=== PATIENT | male | born 1965 | race African-American/Black ===

== ENCOUNTER 2017-07-26 15:23 | Inpatient (IN) | payer OTHER, MEDICARE ==
[~2017-07-26] VITALS: Ht 175.3 cm; Wt 83.1 kg
[~2017-07-26 15:23] MED LIST: ABACAVIR300 MG PO; AMLODIPINE BESY10 MG PO; CARVEDILOL25 MG PO; LAMIVUDINE150 MG PO; LISINOPRIL10 MG PO; MINOXIDIL2.5 MG PO; SUSTIVA600 MG PO
--- OUTSIDE RECORDS SUMMARY | 2017-07-26 15:25 | XMS REPORT | Clinical Summary ---
Author Author HORACIO [facility] Hospital[facility] Address Unknown Phone Unavailable Care Team Providers Care Svp Name Role Phone PCP Unavailable Allergies Active Allergy Reactions Severity Noted Date Comments Penicillins Itching 06/01/2017 Prednisone Other (See Comments) 06/01/2017 No tolerance Sulfa (Sulfonamide Hives 06/01/2017 Antibiotics) Morpholine Analogues Anxiety Low 06/01/2017 Patient states his chest gets tight. Current Medications Not on file Active Problems Not on file Encounters Date Type Specialty Care Team Description 06/07/2017 Abstract Gabriela Herr 06/01/2017 Abstract Gabriela Herr after 07/25/2016 Social History Tobacco Use Types Packs/Day Years Used Date Never Assessed Sex Assigned at Date Recorded Not on file Last Filed Vital Signs Vital Sign Reading Time Taken Blood Pressure - - Pulse - - Temperature - - Respiratory Rate - - Oxygen Saturation - - Inhaled Oxygen - - Concentration Weight 73.9 kg (163 lb) 06/01/2017 1:42 PM CSR RETAIL Height 175.3 cm (5' 9") 06/01/2017 1:42 PM CSR [facility]AIL Body Mass Index 24.07 06/01/2017 1:42 PM CSR RETAIL Plan of Treatment Date Type Specialty Care Team Description 07/27/2017 Office Visit Transplant ESRD (end stage renal disease) on dialysis (HCC) (Primary Dx);Pre-transplant evaluation for chronic kidney disease;Hypertensive renal disease;Type 2 diabetes mellitus with chronic kidney disease on chronic dialysis, unspecified residential insulin use status (HCC) 07/27/2017 Orders Only Transplant Hepatology 07/27/2017 Evaluation Transplant 07/27/2017 Evaluation Transplant 07/27/2017 Evaluation Transplant Results Not on fileafter 07/25/2016
[2017-07-26] MEDS ORDERED: SODIUM CHLORIDE 0.9% 1000ML 1,000 ML IV STA (18:42)
[2017-07-26] MEDS ORDERED: KETOROLAC TROMETHAMINE 30 MG/ML VIAL ONE (18:56)
[2017-07-26] MEDS ORDERED: KETOROLAC TROMETHAMINE 30 MG/ML VIAL IV ONE (19:00)
[2017-07-26 19:05] LABS: BASOPHILS % 0.4 % (0.0-1.0); EOSINOPHILS # (AUTO) 0.1 (0.0-0.4); EOSINOPHILS % 1.8 % (0.0-6.0); HEMATOCRIT 31.8 % (38.2-49.6); HEMOGLOBIN 10.8 g/dL (14.0-18.0); LYMPHOCYTES # (AUTO) 1.8 (1.0-3.2); LYMPHOCYTES % 35.9 % (18.0-39.1); MEAN CORPUSCULAR HEMOGLOBIN 30.7 pg (28-32); MEAN CORPUSCULAR VOLUME 90.3 fL (81-99); MONOCYTES # (AUTO) 0.4 (0.2-0.8); NEUTROPHILS # (AUTO) 2.7 (2.1-6.9); NEUTROPHILS % 53.5 % (38.7-80.0); PLATELET COUNT 152 x10e3/uL (140-360); RED BLOOD COUNT 3.52 x10e6/uL (4.3-5.7); RED CELL DISTRIBUTION WIDTH 12.8 % (11.7-14.4)
[2017-07-26] MEDS ORDERED: SODIUM CHLORIDE FLUSH 10 ML SYR INJ PRN (19:15)
[2017-07-26 19:20] LABS: ALBUMIN 3.9 g/dL (3.5-5.0); ALBUMIN/GLOBULIN RATIO 0.7 (0.8-2.0); ANION GAP 15.2 mmol/L (8-16); CALCIUM 9.5 mg/dL (8.4-10.2); CREATININE, SERUM 9.67 mg/dL (0.72-1.25); POTASSIUM 4.2 mmol/L (3.5-5.1)
--- OUTSIDE RECORDS SUMMARY | 2017-07-26 20:24 | XMS REPORT | Clinical Summary ---
Author Author HOARCIO [facility] Address Unknown Phone Unavailable Care Team Providers Care Sheet Rock Nailer Name Role Phone PCP Unavailable Allergies Active [...] 73.9 kg (163 lb) 06/01/2017 1:42 PM DOCUMENT IMPROVEMENT SPECIALIST Height 175.3 cm (5' 9") 06/01/2017 1:42 PM DOCUMENT IMPROVEMENT SPECIALIST Body Mass Index 24.07 06/01/2017 1:42 PM DOCUMENT IMPROVEMENT SPECIALIST Plan of Treatment Date Type Specialty Care Team Description 07/27/2017 Office Visit Transplant ESRD (end stage renal disease) on dialysis (HCC) (Primary Dx);Pre-transplant evaluation for chronic kidney disease;Hypertensive renal disease;Type 2 diabetes mellitus with chronic kidney disease on chronic dialysis, unspecified longterm insulin use status (HCC) 07/27/2017 Orders Only Transplant Hepatology 07/27/2017 Evaluation Transplant 07/27/2017 Evaluation Transplant 07/27/2017 Evaluation Transplant Results Not on fileafter 07/25/2016
[2017-07-27] MEDS: ONDANSETRON HCL INJ 2 MG/ML VIAL IV PRN ×4 (00:25→19:20)
[2017-07-27] MEDS: MEROPENEM 500 MG VIAL IV SCH ×2 (00:25→20:00)
[2017-07-27] MEDS: HYDROMORPHONE 2MG/ML INJ IV PRN ×4 (00:25→19:20)
[2017-07-27] MEDS ORDERED: LEXIVA700 MG PO (01:04)
[2017-07-27] MEDS ORDERED: SUCRALFATE1 GM PO (01:04)
[2017-07-27] MEDS ORDERED: CALCIUM ACETAT667 MG PO (01:04)
[2017-07-27] MEDS ORDERED: tivicay PO (01:04)
[2017-07-27 04:46] LABS: BASOPHILS % 0.6 % (0.0-1.0); EOSINOPHILS # (AUTO) 0.1 (0.0-0.4); EOSINOPHILS % 2.2 % (0.0-6.0); HEMATOCRIT 27.5 % (38.2-49.6); HEMOGLOBIN 9.3 g/dL (14.0-18.0); LYMPHOCYTES # (AUTO) 2.3 (1.0-3.2); LYMPHOCYTES % 46.8 % (18.0-39.1); MEAN CORPUSCULAR HEMOGLOBIN 30.3 pg (28-32); MEAN CORPUSCULAR HGB CONC 33.8 g/dL (31-35); MEAN CORPUSCULAR VOLUME 89.6 fL (81-99); MONOCYTES # (AUTO) 0.4 (0.2-0.8); MONOCYTES % 8.8 % (4.4-11.3); NEUTROPHILS # (AUTO) 2.1 (2.1-6.9); NEUTROPHILS % 41.4 % (38.7-80.0); PLATELET COUNT 131 x10e3/uL (140-360); RED BLOOD COUNT 3.07 x10e6/uL (4.3-5.7); RED CELL DISTRIBUTION WIDTH 12.8 % (11.7-14.4)
[2017-07-27 05:08] LABS: ALBUMIN 3.3 g/dL (3.5-5.0); ALBUMIN/GLOBULIN RATIO 0.8 (0.8-2.0); ANION GAP 16.1 mmol/L (8-16); CALCIUM 8.3 mg/dL (8.4-10.2); CREATININE, SERUM 10.36 mg/dL (0.72-1.25); POTASSIUM 4.1 mmol/L (3.5-5.1)
--- NOTE | 2017-07-27 09:44 | Diagnostic Imaging Report ---
PROCEDURE:GALLBLADDER ULTRASOUND COMPARISON:None. INDICATIONS:RUQ Pain FINDINGS: Liver: 17.4 cm. Normal hepatic parenchymal echogenicity. No focal mass. Main portal vein: 1.2 cm. Hepatopedal flow. Gallbladder: No echogenic calculi, gallbladder wall thickening, or pericholecystic fluid. Common Bile Duct: 4.0 mm. No echogenic filling defect. Sonographic Nur's sign: Negative. Right kidney: 8.6 cm. Focal well-circumscribed anechoic 2.6 x 2.6 x 2.7 cm cyst is present in the interpolar region. No solid or cystic mass, echogenic calculi, or hydronephrosis. Increased parenchymal echogenicity. Pancreas: The pancreas was insufficiently visualized secondary to overlying bowel gas. Inferior vena cava: Normal. Aorta: Normal. Ascites: None. CONCLUSION: 1. No acute sonographic abnormality. 2. Increased renal cortical echogenicity may represent medical renal disease. Dictated by: Hugo Fraser M.D. on 07/27/2017 at 9:54 Electronically approved by: Hugo Fraser M.D. on 07/27/2017 at 9:54
[2017-07-27] MEDS ORDERED: GUAIFENESIN/CODEINE 10 ML CUP PO PRN (10:30)
[2017-07-27] MEDS ORDERED: HYDRALAZINE HCL 20 MG/ML VIAL IV PRN (10:30)
[2017-07-27] MEDS: SUCRALFATE 1 GM TAB PO SCH ×3 (11:59→21:07)
--- NOTE | 2017-07-27 11:59 | History and Physical ---
CHIEF COMPLAINT: Right upper quadrant abdominal pain. HPI: This is a 52-year-old male with known history of HIV, end-stage renal disease on HD, uncontrolled hypertension who also has secondary hyperparathyroidism who comes into the ED with complaints of right upper quadrant abdominal pain. He was recently admitted to [facility]. According to the patient, he has had several imaging studies and was told that he just had gas and was discharged home. Yesterday, he reports to his ID doctor, Dr. Waddell, due to worsening abdominal distention and pain and came into [facility] for further evaluation. Patient reports no nausea, no vomiting. He reports right upper quadrant abdominal pain. He denies chest pain or palpitations. Patient seen and evaluated at bedside on the medical floor in the ER, currently doing well with no other complaints. His blood pressure is elevated and his home medications have been restarted. REVIEW OF SYSTEMS: Pertinent positives: Right upper quadrant abdominal pain, decreased oral intake. Pertinent negatives: Denies any chest pain, palpitations, nausea, vomiting, diarrhea, dysuria, hematuria, frequency, urgency, lightheadedness, dizziness, headache, shortness of breath, or any other complaints. The rest of the 14-point review of systems have been reviewed with the patient and are negative. ALLERGIES: PENICILLIN, SULFA, MORPHINE, AND PREDNISONE. HOME MEDICATIONS: He takes; 1. Abacavir 300 mg p.o. b.i.d. 2. Norvasc 10 mg daily. 3. Calcium acetate 667 mg p.o. t.i.d. with meals. 4. Coreg 25 mg p.o. b.i.d. 5. Sustiva 600 mg daily. 6. Lamivudine 150 mg half a tab daily. 7. Lexiva 700 mg p.o. b.i.d. 8. Minoxidil 10 mg p.o. b.i.d. 9. Sucralfate 1 gram p.o. q.i.d. PAST MEDICAL HISTORY: HIV, ESRD on HD, and hypertension uncontrolled. PAST SURGICAL HISTORY: Has an AV fistula on the left upper extremity. FAMILY HISTORY: Hypertension and diabetes. SOCIAL HISTORY: No drugs, no alcohol. Does not smoke. Good social support. VITAL SIGNS: Temperature is 97.9, pulse 92, respiratory rate is 16, his current blood pressure is 200/106, pulse ox is 96% on room air. LABORATORY DATA: His lab findings shows a white count of 5, hemoglobin 9.3, hematocrit is 28, platelets of 331. Chemistries: Sodium is 136, potassium 4.1, chloride 101, bicarb 23, anion gap of 16, BUN is 46, creatinine is 1.0, his glucose is 85, calcium 8.3. LFTs are normal. Albumin is 3.3. MICROBIOLOGY: None. IMAGING STUDIES: He had a right upper quadrant ultrasound of the gallbladder, showed no acute sonographic abnormality. PHYSICAL EXAMINATION GENERAL: Not in acute distress, alert and oriented times 3, cooperative on exam. HEENT: Head normocephalic, atraumatic. Eyes: Pupils are equal, round, and reactive to light bilaterally. Extraocular movements are intact bilaterally. NECK: Supple. Good range of motion. Throat: No evidence of any erythema or exudates in the posterior pharynx. Has poor dentition. PULMONARY: Clear to auscultation bilaterally. No wheezing, no rales, no rhonchi. No crackles appreciated. CARDIOVASCULAR: Positive S1, S2. No murmurs, rubs or gallops appreciated. ABDOMEN: Soft. Tender to palpation in right upper quadrant. It is distended. No rebound, no guarding. MUSCULOSKELETAL: Strength is 5/5 throughout. No evidence of any musculoskeletal deficit on examination. No weakness appreciated. NEUROLOGIC: Cranial nerves II through XII are grossly intact. No evidence of any neurological deficit on exam. SKIN: Intact. Warm to touch. Good capillary refill. PSYCHIATRIC: Normal affect and mood. EXTREMITIES: No edema. Good range of motion throughout. ASSESSMENT AND PLAN 1. Right upper quadrant abdominal pain with abdominal distention - Right upper quadrant ultrasound negative for any cholecystitis, HIDA scan ordered, general surgery consulted. If not resolved or no positive result on HIDA scan, we will get CT abdomen and pelvis with IV contrast and possible GI consultation. 2. End-stage renal disease, on hemodialysis Wednesday, Wednesday, and Wednesday - Schedule hemodialysis for tomorrow. 3. Human immunodeficiency virus - Infectious disease consulted, continue same home medications. 4. Hypertension urgency - Resume all home medications, adjust accordingly, p.r.n. hydralazine. 5. Prophylaxis - Lovenox. 6. Fluid, electrolyte, nutrition - N.p.o. for now. Renal diet after procedure is done. 7. Disposition - Inpatient, ID and general surgery consulted otherwise. Job#: [id number] VAS
[2017-07-27] MEDS ORDERED: SINCALIDE 3 MCG/VIAL INJ ONE (13:33)
--- NOTE | 2017-07-27 16:54 | Diagnostic Imaging Report ---
Hepatobiliary Scan with Gallbladder Ejection Fraction Clinical information: RUQ abdominal pain x 1 week Technique: Following intravenous administration of 5.4 millicuries of Tc-99m mebrofenin, dynamic images of the abdomen in the anterior projection were obtained through 36 minutes. Sincalide (CCK analog) 1.8 micrograms was administered intravenously over 30 minutes with additional imaging for determination of gallbladder ejection fraction. Discussion: Perfusion of the liver is normal. Extraction of tracer by the liver parenchyma is normal. Tracer appears promptly within the biliary tract. The gallbladder begins to fill at 10 minutes post injection of tracer and fills adequately. Tracer is seen in the small bowel during the sincalide infusion. There is no contractile response by the gallbladder to the pharmacologic dose of sincalide. No emptying of the gallbladder occurs during the 30 minute infusion. Impression: 1. Filling of the gallbladder excludes acute cystic duct obstruction/acute cholecystitis. 2. The gallbladder ejection fraction is undefined as there is no emptying of the gallbladder during the infusion of sincalide. This absence of a contractile response to sincalide supports the clinical diagnosis of chronic cholecystitis/gallbladder dyskinesia. Signed by: Dr. Rosey Shaw M.D. on 07/27/2017 4:51 PM
[2017-07-27] MEDS: MINOXIDIL 2.5 MG TAB PO SCH (16:57)
[2017-07-27] MEDS: CARVEDILOL 12.5 MG TAB PO SCH (16:57)
[2017-07-27] MEDS: FOSAMPRENAVIR CALCIUM PO SCH (17:00)
[2017-07-27] MEDS: TIVICAY 50 MG PO SCH (17:00)
[2017-07-27] MEDS: ABACAVIR SULFATE 300 MG PO SCH (17:00)
[2017-07-27 17:50] VITALS: BP 170/89
[2017-07-27 20:00] VITALS: BP 149/81
[2017-07-27] MEDS: ZOLPIDEM TARTRATE 5 MG TAB PO PRN (20:45)
[2017-07-27 23:48] VITALS: BP 149/81
--- NOTE | 2017-07-27 23:59 | Consultation ---
DATE OF CONSULTATION: REASON FOR CONSULTATION: HIV, abdominal pain, concern about cholecystitis. HISTORY OF PRESENT ILLNESS: This is a 52-year-old gentleman who has a history of HIV and AIDS, end-stage renal disease on hemodialysis, hypertension, multiple GI issues before, history of hyperparathyroidism. He came to my office complaining of right abdominal pain. The patient is telling me for the last few days having abdominal pain with abdominal distention. He has been to [facility] where he had extensive workup, but he was discharged. He came to my office telling me that he is not feeling any better. When I examined him, there was right upper quadrant pain and distention and tenderness. The patient is known to have a history of HIV and his viral load has been going up and CD4 has been going down, so I was concerned about him. He was sent to the emergency room where he was being admitted and evaluated for concern if he is having cholecystitis. The patient is currently laying in bed comfortably; but he does have right upper quadrant pain, some nausea, but there is no vomiting. He feels his abdomen is bloated. PAST MEDICAL HISTORY: Significant for hypertension, HIV, end-stage renal disease, several GI issues. SURGICAL HISTORY: IV access for dialysis. ALLERGIES: PENICILLIN AND SULFA DRUGS. SOCIAL HISTORY: He denies smoking, drug abuse, alcohol abuse. FAMILY HISTORY: Hypertension. REVIEW OF SYSTEMS HEENT: There is no headache, visual change, hearing change. GI: Some nausea. There is abdominal discomfort. He feels bloated. : There is no urgency, no frequency. SKIN: There is no rash. JOINTS: There is no erythema or edema. CARDIAC: He denies any chest pain or arrhythmia. PULMONARY: He denies any shortness of breath or cough. All other systems within normal limits. MEDICATIONS: He is on 1. Abacavir 300 mg p.o. b.i.d. 2. Norvasc 10 mg p.o. daily. 3. Calcium acetate 667 p.o. t.i.d. 4. Coreg 25 mg p.o. b.i.d. 5. Sustiva 600 mg daily. 6. Lamivudine 150 mg p.o. daily. 7. Lexiva 700 p.o. b.i.d. 8. Minoxidil 10 mg p.o. b.i.d. 9. Sucralfate 1 g p.o. t.i.d. I am not so sure how compliant he is with his antiretroviral medication because the viral load is elevated and going up. PHYSICAL EXAMINATION GENERAL: He is currently alert, oriented, does not seem to be in acute distress. VITALS: Stable. Afebrile. HEENT: He is not icteric. Normocephalic. NECK: Supple. No JVD. LYMPHATIC: No thyromegaly. CHEST: Clear bilaterally. COR: S1, S2. No murmur. ABDOMEN: Soft. Bowel sounds present. He does have right upper quadrant tenderness. EXTREMITIES: No edema. SKIN: No rash. His laboratory data reviewed. His chart reviewed. IMPRESSION 1. Right upper quadrant pain, concern about cholecystitis. Ultrasound was noted. It has been negative. Will obtain hydroxy iminodiacetic acid scan. Will consult with gastroenterology and general surgery. 2. End-stage renal disease, on hemodialysis. 3. Human immunodeficiency virus. Will continue with his antiretroviral medications. 4. Hypertension. Thank you for asking me to see this patient. Discussed with the patient, discussed with attending. Job#: [id number]
[2017-07-28] VITALS (7 sets, daily range): BP systolic 79–174; BP diastolic 54–104
--- NOTE | 2017-07-28 00:11 | Consultation ---
DATE OF CONSULTATION: July 27, 2017 CHIEF COMPLAINT: Abdominal pain. HISTORY OF PRESENT ILLNESS: Patient is a 52-year-old male with history of abdominal distention, bloating postprandially for approximately 2 months. In the last 2 weeks, he has experienced increasing right upper quadrant pain with fatty food intolerance. The patient denied nausea, vomiting, diarrhea, fever or chills. PAST MEDICAL HISTORY: Significant for end-stage renal disease, on dialysis; HIV positive; and uncontrolled hypertension. SURGICAL HISTORY: Positive for AV fistula creation in the left arm. ALLERGIES: THE PATIENT HAS ALLERGIC REACTION TO SULFA, PENICILLIN, MORPHINE, AND PREDNISONE. SOCIAL HABITS: The patient does not smoke and drinks only socially. REVIEW OF SYSTEMS: He has no chest pain or shortness of breath. PHYSICAL EXAMINATION VITAL SIGNS: Stable, afebrile. GENERAL: He is awake, alert, in no apparent distress. HEENT: Sclerae nonicteric. NECK: Supple. LUNGS: Clear. HEART: Regular rate and rhythm. No murmurs. ABDOMEN: Mildly distended with some guarding, tenderness in the right upper quadrant without rebound. EXTREMITIES: Without cyanosis or edema. LABS: The patient's white cell count is 5, hemoglobin of 9, platelet count of 131,000. Liver function tests are within normal limits with lipase 54. HIDA scan showed no emptying of the gallbladder suggesting biliary dyskinesia. Ultrasound showed no gallstones. ASSESSMENT: Chronic cholecystitis from biliary dyskinesia. PLAN: Recommended laparoscopic cholecystectomy under anesthesia. Attendant risks discussed with patient in detail. Job#: [id number]
[2017-07-28 06:20] LABS: BASOPHILS % 0.4 % (0.0-1.0); EOSINOPHILS # (AUTO) 0.1 (0.0-0.4); EOSINOPHILS % 1.7 % (0.0-6.0); HEMATOCRIT 27.9 % (38.2-49.6); HEMOGLOBIN 9.4 g/dL (14.0-18.0); LYMPHOCYTES # (AUTO) 2.1 (1.0-3.2); LYMPHOCYTES % 45.2 % (18.0-39.1); MEAN CORPUSCULAR HEMOGLOBIN 30.3 pg (28-32); MEAN CORPUSCULAR HGB CONC 33.7 g/dL (31-35); MONOCYTES # (AUTO) 0.4 (0.2-0.8); MONOCYTES % 8.5 % (4.4-11.3); NEUTROPHILS # (AUTO) 2.1 (2.1-6.9); NEUTROPHILS % 43.8 % (38.7-80.0); PLATELET COUNT 132 x10e3/uL (140-360); RED CELL DISTRIBUTION WIDTH 13.2 % (11.7-14.4)
[2017-07-28 06:33] LABS: ANION GAP 19.9 mmol/L (8-16); CREATININE, SERUM 14.36 mg/dL (0.72-1.25); POTASSIUM 4.9 mmol/L (3.5-5.1)
[2017-07-28] MEDS: HYDROMORPHONE 2MG/ML INJ IV PRN ×4 (08:20→22:29)
[2017-07-28] MEDS: SUCRALFATE 1 GM TAB PO SCH ×4 (08:24→20:59)
[2017-07-28] MEDS: FOSAMPRENAVIR CALCIUM PO SCH ×2 (09:00→16:22)
[2017-07-28] MEDS: MINOXIDIL 2.5 MG TAB PO SCH ×2 (09:00→16:23)
[2017-07-28] MEDS: TIVICAY 50 MG PO SCH ×2 (09:00→16:22)
[2017-07-28] MEDS ORDERED: LISINOPRIL 10 MG TAB PO SCH (09:00)
[2017-07-28] MEDS: ABACAVIR SULFATE 300 MG PO SCH ×2 (09:00→16:22)
[2017-07-28] MEDS ORDERED: SODIUM CHLORIDE 0.9% 1000ML 2,000 ML ONE (09:05)
[2017-07-28] MEDS: LISINOPRIL 20 MG TAB PO SCH ×3 (10:30→16:30)
[2017-07-28] MEDS: CARVEDILOL 12.5 MG TAB PO SCH ×2 (12:19→16:22)
[2017-07-28] MEDS: AMLODIPINE BESYLATE 10 MG TAB PO SCH (12:20)
[2017-07-28] MEDS ORDERED: DIPHENHYDRAMINE HCL INJ 50 MG/ML VIAL IV PRN (14:30)
[2017-07-28] MEDS: VANCOMYCIN 250MG/5ML ORAL SOLN PO SCH ×2 (15:33→20:59)
[2017-07-28] MEDS: MEROPENEM 500 MG VIAL IV SCH (20:30)
[2017-07-28] MEDS: ZOLPIDEM TARTRATE 5 MG TAB PO PRN (23:40)
[2017-07-29] VITALS: BP 96/46
[2017-07-29] MEDS: VANCOMYCIN 250MG/5ML ORAL SOLN PO SCH ×3 (05:05→21:18)
[2017-07-29] MEDS: HYDROMORPHONE 2MG/ML INJ IV PRN ×4 (06:40→22:10)
[2017-07-29] MEDS: SUCRALFATE 1 GM TAB PO SCH ×4 (07:30→21:18)
[2017-07-29] MEDS: FOSAMPRENAVIR CALCIUM PO SCH ×2 (07:43→16:22)
[2017-07-29] MEDS: TIVICAY 50 MG PO SCH ×2 (07:43→16:22)
[2017-07-29] MEDS: ABACAVIR SULFATE 300 MG PO SCH ×2 (07:43→16:22)
[2017-07-29] MEDS: AMLODIPINE BESYLATE 10 MG TAB PO SCH (08:03)
[2017-07-29] MEDS: CARVEDILOL 12.5 MG TAB PO SCH ×2 (08:03→18:46)
[2017-07-29] MEDS: MINOXIDIL 2.5 MG TAB PO SCH ×2 (08:03→18:47)
[2017-07-29] MEDS: LISINOPRIL 20 MG TAB PO SCH (08:04)
[2017-07-29 08:29] VITALS: BP 131/69
[2017-07-29 10:13] VITALS: BP 131/69
[2017-07-29 13:16] VITALS: BP 118/59
[2017-07-29 14:13] LABS: ANION GAP 15.9 mmol/L (8-16); CALCIUM 8.9 mg/dL (8.4-10.2); CREATININE, SERUM 12.02 mg/dL (0.72-1.25); POTASSIUM 4.9 mmol/L (3.5-5.1)
[2017-07-29] MEDS ORDERED: MIDAZOLAM HCL 2 MG/2 ML VIAL ONE (14:23)
[2017-07-29] MEDS ORDERED: FENTANYL CITRATE/PF 100MCG/2 ML INJ ONE (14:24)
[2017-07-29] MEDS ORDERED: SODIUM CHLORIDE 0.9% 500ML 500 ML ONE (14:55)
[2017-07-29] MEDS ORDERED: BUPIVACAINE 0.25% 30ML SDV INJ ONE (15:17)
[2017-07-29] MEDS ORDERED: PROPOFOL IV EMULSION 10 MG/ML 20 ML VIAL ONE (17:04)
[2017-07-29] MEDS ORDERED: ROCURONIUM BROMIDE 10 MG/ML 5ML VIAL ONE (17:04)
[2017-07-29] MEDS ORDERED: LIDOCAINE HCL 2% LOCAL INJ 5 ML SDV VIAL INJ ONE (17:04)
[2017-07-29] MEDS ORDERED: DESFLURANE 240 ML BTL INH ONE (17:04)
[2017-07-29] MEDS ORDERED: ONDANSETRON HCL INJ 2 MG/ML VIAL ONE (17:04)
--- NOTE | 2017-07-29 17:34 | Operative Report ---
DATE OF PROCEDURE: July 29, 2017 PREOPERATIVE DIAGNOSIS: Chronic cholecystitis. POSTOPERATIVE DIAGNOSIS: Chronic cholecystitis. OPERATIVE PROCEDURE: Laparoscopic cholecystectomy. PROJECTS MANAGER: None. ANESTHESIA: General endotracheal Dr. Urbano. INDICATIONS: The patient is a 52-year-old male with history of epigastric pain and bloating and HIDA scan showed nonfunctional gallbladder with no ejection fraction. Patient consented for laparoscopic cholecystectomy with attendant risks discussed. PROCEDURE FINDINGS: Chronic acalculous cholecystitis. DESCRIPTION OF PROCEDURE: Patient brought to the OR intubated. Abdomen prepped with alcohol and draped in sterile fashion. Infraumbilical incision is made and a 10 mm port inserted intraperitoneally and insufflation begun. Under direct vision other port sites placed in the mid epigastric right upper quadrant. Gallbladder fundus retracted cephalad direction. Neck of the gallbladder retracted laterally with blunt and sharp dissection. Cystic artery and cystic duct isolated and the junction of the common bile duct is seen before triple clipping the cystic artery and cystic duct and divided them between clips. Gallbladder then detached from the liver with cautery and taken out through the umbilical incision using an Endo pouch. The operative field was then irrigated with saline solution. Hemostasis achieved in gallbladder fossa with cautery. All ports removed under direct vision. Fascia closed interrupted 0 Vicryl. Skin closed with subcuticular stitch. Patient was extubated and transported to the recovery room in guarded condition. Estimated blood loss 10 mL Job#: [id number]
[2017-07-29 17:44] VITALS: BP 126/72
[2017-07-29 20:00] VITALS: BP 130/67
[2017-07-29] MEDS: MEROPENEM 500 MG VIAL IV SCH (21:18)
[2017-07-29] MEDS: ZOLPIDEM TARTRATE 5 MG TAB PO PRN (21:18)
[2017-07-29] MEDS: ONDANSETRON HCL INJ 2 MG/ML VIAL IV PRN (22:10)
[2017-07-30] VITALS (7 sets, daily range): BP systolic 123–151; BP diastolic 56–87
[2017-07-30] MEDS: HYDROMORPHONE 2MG/ML INJ IV PRN ×5 (02:00→23:28)
[2017-07-30] MEDS: VANCOMYCIN 250MG/5ML ORAL SOLN PO SCH ×3 (05:40→21:27)
[2017-07-30] MEDS: SUCRALFATE 1 GM TAB PO SCH ×4 (08:42→20:18)
[2017-07-30] MEDS: CARVEDILOL 12.5 MG TAB PO SCH ×2 (08:42→17:00)
[2017-07-30] MEDS: MINOXIDIL 2.5 MG TAB PO SCH ×2 (08:42→17:00)
[2017-07-30] MEDS: AMLODIPINE BESYLATE 10 MG TAB PO SCH (08:43)
[2017-07-30] MEDS: LISINOPRIL 20 MG TAB PO SCH (08:43)
[2017-07-30] MEDS: FOSAMPRENAVIR CALCIUM PO SCH ×2 (09:00→15:46)
[2017-07-30] MEDS: ABACAVIR SULFATE 300 MG PO SCH ×2 (09:00→15:46)
[2017-07-30] MEDS: TIVICAY 50 MG PO SCH ×2 (09:00→15:46)
[2017-07-30] MEDS: ALBUTEROL/IPRATROPIUM 3 ML NEB NEB PRN (09:06)
[2017-07-30] MEDS ORDERED: SODIUM CHLORIDE 0.9% 1000ML 2,000 ML ONE (12:58)
[2017-07-30] MEDS: MEROPENEM 500 MG VIAL IV SCH (19:54)
[2017-07-30] MEDS: ZOLPIDEM TARTRATE 5 MG TAB PO PRN (20:18)
[2017-07-31] VITALS: BP 124/60
[2017-07-31 04:00] VITALS: BP 138/77
[2017-07-31] MEDS: HYDROMORPHONE 2MG/ML INJ IV PRN ×3 (04:15→19:41)
[2017-07-31] MEDS: VANCOMYCIN 250MG/5ML ORAL SOLN PO SCH ×3 (05:31→21:31)
[2017-07-31] MEDS: SUCRALFATE 1 GM TAB PO SCH ×4 (07:39→20:30)
[2017-07-31 08:09] VITALS: BP 148/76
[2017-07-31] MEDS: FOSAMPRENAVIR CALCIUM PO SCH ×2 (09:00→16:08)
[2017-07-31] MEDS: ABACAVIR SULFATE 300 MG PO SCH ×2 (09:00→16:08)
[2017-07-31] MEDS: TIVICAY 50 MG PO SCH ×2 (09:00→16:08)
[2017-07-31] MEDS: AMLODIPINE BESYLATE 10 MG TAB PO SCH (09:16)
[2017-07-31] MEDS: CARVEDILOL 12.5 MG TAB PO SCH ×2 (09:17→16:27)
[2017-07-31] MEDS: LISINOPRIL 20 MG TAB PO SCH (09:17)
[2017-07-31] MEDS: MINOXIDIL 2.5 MG TAB PO SCH ×2 (09:17→16:27)
[2017-07-31 11:44] LABS: BASOPHILS % 0.5 % (0.0-1.0); EOSINOPHILS # (AUTO) 0.1 (0.0-0.4); HEMATOCRIT 28.3 % (38.2-49.6); HEMOGLOBIN 9.6 g/dL (14.0-18.0); LYMPHOCYTES % 36.4 % (18.0-39.1); MEAN CORPUSCULAR HEMOGLOBIN 30.9 pg (28-32); MEAN CORPUSCULAR HGB CONC 33.9 g/dL (31-35); MONOCYTES # (AUTO) 0.5 (0.2-0.8); MONOCYTES % 8.8 % (4.4-11.3); NEUTROPHILS # (AUTO) 2.9 (2.1-6.9); NEUTROPHILS % 52.1 % (38.7-80.0); PLATELET COUNT 145 x10e3/uL (140-360); RED BLOOD COUNT 3.11 x10e6/uL (4.3-5.7); RED CELL DISTRIBUTION WIDTH 13.4 % (11.7-14.4)
[2017-07-31 12:05] VITALS: BP 165/77
[2017-07-31] MEDS: ALBUTEROL/IPRATROPIUM 3 ML NEB NEB PRN (14:49)
[2017-07-31 17:37] VITALS: BP 154/88
[2017-07-31 20:00] VITALS: BP 151/77
[2017-07-31] MEDS: ZOLPIDEM TARTRATE 5 MG TAB PO PRN (21:31)
[2017-08-01] VITALS: BP_SYST 137; BP_SYST 147; BP_DIAS 73; BP_DIAS 74
[2017-08-01] MEDS: HYDROMORPHONE 2MG/ML INJ IV PRN ×2 (03:24→08:43)
[2017-08-01 04:00] VITALS: BP 139/67
[2017-08-01] MEDS: VANCOMYCIN 250MG/5ML ORAL SOLN PO SCH (05:30)
[2017-08-01 07:47] VITALS: BP 141/67
[2017-08-01 08:18] VITALS: BP 141/67
[2017-08-01] MEDS: SUCRALFATE 1 GM TAB PO SCH (08:29)
[2017-08-01] MEDS: FOSAMPRENAVIR CALCIUM PO SCH (08:29)
[2017-08-01] MEDS: CARVEDILOL 12.5 MG TAB PO SCH (08:29)
[2017-08-01] MEDS: AMLODIPINE BESYLATE 10 MG TAB PO SCH (08:29)
[2017-08-01] MEDS: TIVICAY 50 MG PO SCH (08:29)
[2017-08-01] MEDS: ABACAVIR SULFATE 300 MG PO SCH (08:29)
[2017-08-01] MEDS: MINOXIDIL 2.5 MG TAB PO SCH (08:29)
[2017-08-01] MEDS: LISINOPRIL 20 MG TAB PO SCH (08:30)
[2017-08-01] MEDS ORDERED: FLUCONAZOLE 100 MG TAB PO SCH (09:00)
[2017-08-01] MEDS ORDERED: FLAGYL250 MG PO (10:19)
[2017-08-01] MEDS ORDERED: TYLENOL WITH C1 EACH PO (10:19)
--- NOTE | 2017-08-01 10:20 | Discharge Summary ---
FINAL DISCHARGE DIAGNOSES 1. Acute cholecystitis, status post laparoscopic cholecystectomy. 2. Clostridium difficile colitis. 3. Human immunodeficiency virus. 4. Hypertension. VITAL SIGNS: Temperature is 97.5, pulse 90, respiratory rate 19. Blood pressure was 141/67. He is on room air. LAB FINDINGS: White count is 5.5, hemoglobin 9.6, hematocrit 28, platelets 145. Chemistries: Sodium 136, potassium 4.9, chloride 100, bicarb 25, anion gap 15, BUN 40, and creatinine 12. His glucose is 86. Calcium 8.9. LFTs were normal. MICROBIOLOGY: None. IMAGING STUDIES: HIDA scan showed the gallbladder ejection fraction is undefined. There is no emptying of the gallbladder during the infusion. There was a gallbladder ultrasound performed that showed concerns of no acute sonographic abnormality. CONSULTANTS: Infectious disease and general surgery. HOSPITAL COURSE: This is a 52-year-old male with known history of HIV, hypertension, end-stage renal disease on HD. He comes in to the ED with complaints of right upper quadrant abdominal pain. Patient was admitted, and further imaging was found to have acute cholecystitis. General surgery was consulted, which the patient had a laparoscopic cholecystectomy performed. Patient also was tolerating diet well, back to regular diet with no other complaints. ID was consulted for his underlying HIV as well as his C. diff colitis. Patient was on antiretroviral medications and also was on oral vancomycin. Patient will be discharged on oral Flagyl 500 mg t.i.d. for 2 weeks. Patient will continue with the same antiretroviral medications with no changes. On discharge, his vital signs were stable. Labs remained stable. The patient was seen, evaluated and examined thoroughly on the day of discharge with no other complaints. Patient also had hemodialysis while he was in the hospital based on his normal schedule. Patient is to follow up with his primary care physician in one week. Patient verbalized an understanding and agrees with plan to care to follow up accordingly with the appropriate consultants as described above. MEDICATIONS: See med reconciliation form includin. Tylenol with Codeine 1 tab p.o. every 6 hours as needed for pain, 20 tablets were given. 2. Flagyl 500 mg 1 tab p.o. t.i.d. for 2 weeks. DISPOSITION: Home. CONDITION: Stable. DIET: Renal. FOLLOWUP: With primary care physician in one week, general surgery in 7 to 10 days, infectious disease doctor in 1 to 2 weeks. Patient was advised not to lift up any objects greater than 10 pounds until he sees a general surgeon for further evaluation postsurgically and post hospital. In the event of any worsening symptoms, patient advised to come back to the ED for further evaluation. Discharge summary took greater than 35 minutes. SWEETIE LUCERO MD Job#: [id number]
[2017-08-01 11:20] VITALS: BP 161/79
== END 2017-08-01 11:22 | disposition home or self-care (01) | DRG 417 ==
LOC: ER 15:23 → ERHOLD 20:21 → MED/SURG2 07-27 16:27
PROVIDERS: ADMIT Internal Medicine; ATTEND Internal Medicine
PROC: 5A1D70Z Performance of Urinary Filtration, Intermittent, Less than 6 Hours Per Day (ICD-10-PCS; 2017-07-28)
PROC: 0FT44ZZ Resection of Gallbladder, Percutaneous Endoscopic Approach (ICD-10-PCS; principal; 2017-07-29 14:00)
DX: K80.12 Calculus of gallbladder with acute and chronic cholecystitis without obstruction (principal); N18.6 End stage renal disease; B20 Human immunodeficiency virus [HIV] disease; I12.0 Hypertensive chronic kidney disease with stage 5 chronic kidney disease or end stage renal disease; A04.72 Enterocolitis due to Clostridium difficile, not specified as recurrent; N25.81 Secondary hyperparathyroidism of renal origin; Z99.2 Dependence on renal dialysis; Z88.5 Allergy status to narcotic agent; Z88.0 Allergy status to penicillin; Z88.2 Allergy status to sulfonamides; Z88.8 Allergy status to other drugs, medicaments and biological substances; K82.8 Other specified diseases of gallbladder; E21.3 Hyperparathyroidism, unspecified
CPT/HCPCS: 36415; 76705; 78227; 80048; 80053; 82150; 83690; 85025; 87340; 87493; 88304; 90962; 94640; 99284; A9537; J0360; J1200; J1885; J2001; J2185; J2250; J2405; J2805; J7030; J7040

== ENCOUNTER 2017-11-07 06:02 | Emergency (ER) | payer MEDICARE, OTHER ==
[~2017-11-07] VITALS: Ht 175.3 cm; Wt 80.7 kg
[~2017-11-07 06:02] MED LIST changes: +CALCIUM ACETAT667 MG PO; +FLAGYL250 MG PO; +LEXIVA700 MG PO; +SUCRALFATE1 GM PO; +TYLENOL WITH C1 EACH PO; +tivicay PO
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
--- OUTSIDE RECORDS SUMMARY | 2017-11-07 06:05 | XMS REPORT | Clinical Summary ---
Author Author [facility] Center[facility]Former[facility] Address Unknown Phone Unavailable Care Team Providers Care Software Engineering Associate Manager Name Role Phone PCP Unavailable Allergies Active Allergy Reactions Severity Noted Date Comments Penicillins Itching 06/01/2017 Prednisone Other (See Comments) 06/01/2017 No tolerance Sulfa (Sulfonamide Hives 06/01/2017 Antibiotics) Morpholine Analogues Anxiety Low 06/01/2017 Patient states his chest gets tight. Current Medications Prescription Sig. Disp. Refills Start End Date Status Date lisinopril Take 40 mg by mouth daily Active (PRINIVIL,ZESTRIL) 40 MG 2 tabs daily. tablet calcium acetate (PHOSLO) Take 1,334 mg by mouth 3 Active 667 mg capsule (three) times daily with meals. rOPINIRole (REQUIP) 0.5 Take 0.5 mg by mouth 3 Active MG tablet (three) times daily. amLODIPine (NORVASC) 10 Take 10 mg by mouth Active MG tablet daily. abacavir (ZIAGEN) 300 mg Take 300 mg by mouth 2 Active tablet (two) times daily. Dolutegravir (TIVICAY) 50 Take 50 mg by mouth Active mg Tab daily. fosamprenavir (LEXIVA) Take 700 mg by mouth 2 Active 700 mg tablet (two) times daily. Active Problems Patient Care Coordination Note DR. 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 (HCC) 07/27/2017 Telephone Transplant Elinor eHrnandez Kidney Transplant Pre-evaluation 06/07/2017 Abstract Transplant Gabriela Quintero 06/01/2017 Abstract Gabriela Herr after 11/06/2016 Social History Tobacco Use Types Packs/Day Years Used Date Never Assessed Sex Assigned at Date Recorded Not on file Last Filed Vital Signs Vital Sign Reading Time Taken Blood Pressure - - Pulse - - Temperature - - Respiratory Rate - - Oxygen Saturation - - Inhaled Oxygen - - Concentration Weight 73.9 kg (163 lb) 06/01/2017 1:42 PM DOUBLE BACK OPERATOR Height 175.3 cm (5' 9") 06/01/2017 1:42 PM DOUBLE BACK OPERATOR Body Mass Index 24.07 06/01/2017 1:42 PM DOUBLE BACK OPERATOR Plan of Treatment Health Maintenance Due Date Last Done Comments INFLUENZA VACCINE 03/21/2018 Results * CD4 T Cell Subset (09/21/2017 11:33 AM) Component Value Ref Range Total Lymphocytes 2061 /cu mm CD3+ T Lymphocytes % 73 49 - 84 % CD3+ T Lymphocytes 1500 603 - 2990 /cu mm Absolute CD3+/CD8+ T Lymph cells % 50 (H) 10 - 40 % CD3+/CD8+ T Lymph cells 1031 125 - 1312 /cu mm Absolute CD3+/CD4+ T Lymph cells% 21 (L) 28 - 63 % CD3+/CD4+ T Lymph Cells 438 (L) 441 - 2156 /cu mm Absolute T Lymphocytes CD4/CD8 0.43 (L) 0.70 - 3.23 ratio CD16+/CD56+ NK Cells % 4 4 - 25 % CD16+/CD56+ NK Cells 87 (L) 95 - 640 /cu mm Absolute CD19+ B Lymphocytes % 23 6 - 27 % CD19+ B Lymphocytes 466 107 - 698 /cu mm Absolute Specimen Performing Laboratory Blood [facility] [address] [address] * G6PD, quantitative (09/21/2017 11:33 AM) Component Value Ref Range G-6-Pd, Quant 18.9 7.0 - 20.5 U/g Hgb Specimen Performing Laboratory Blood [facility] [address] [place] [address] Narrative Performing Lab [facility] [address] [place] [address] Chelly Brooke MD, PhD * HIV-1 PCR, Quantitative (09/21/2017 11:33 AM) Component Value Ref Range HIV-1 PCR, Quantitative Less than 20 Cp/mL HIV RNA detected (A) HIV RNA not detected Specimen Performing Laboratory Blood [facility] [address] [address] [facility] This test uses a Real-Time Polymerase Chain Reaction (RT-PCR) methodology to detect a highly conserved region of the HIV-1 gag gene and was performed using the WILLAM AmpliPrep/WILLAM TaqMan HIV-1 test kit version 2.0 ([employer] Reportable range for this assay is 20 - 10,000,000 copies per mL (1.3 - 7.0 Log copies/mL). after 11/06/2016
--- OUTSIDE RECORDS SUMMARY | 2017-11-07 06:05 | XMS REPORT ---
Author Author [facility] Address Unknown Phone Unavailable Care Team Providers Care Manager Performance Name Role Phone SOLO AGUSTIN Unavailable Unavailable SWEETIE LUCERO Unavailable Unavailable Problems This patient has no known problems. Allergies, Adverse Reactions, Alerts This patient has no known allergies or adverse reactions. Medications This patient has no known medications. Results Test Description Test Time Test Comments Text Results Atomic Results Result Comments HIV-1 PCR, QUANTITATIVE 2017-09-24 14:15:00 HIV-1 RESULT COMPONENT (LUTHER) (test [id number]) Less than 20 Cp/mL HIV RNA detected HIV RNA not detected This test uses a Real-Time Polymerase Chain Reaction (RT-PCR) methodology to detect a highly conserved region of the HIV-1 gag gene and was performed using the WILLAM AmpliPrep/WILLAM TaqMan HIV-1 test kit version 2.0 ([employer]Reportable range for this assay is 20 - 10,000,000 copies per mL (1.3 - 7.0 Log copies/mL).CD4 T CELL [id number] 16:34:00* Test Item Value Reference Range Comments CD4/CD8 RATIO FC (LUTHER) (test [id number]) 0.43 0.70-3.23 [place] [address] Patient Name: TAL EMANUEL MR #: [id number] : 1965 Age/Sex: 52/M Req #: [id number] Adm Physician: SWEETIE LUCERO MD Ordered by: VIRA ZUÑIGA MD Report #: [id number] Location: [facility] Room/Bed: [place] [address] __ Procedure: [id number] US/US GALLBLADDER Exam Date: Exam Time: REPORT STATUS: Signed PROCEDURE: GALLBLADDER ULTRASOUND COMPARISON: None. INDICATIONS: RUQ Pain FINDINGS: Liver: 17.4 cm. Normal hepatic parenchymal echogenicity. No focal mass. Main portal vein: 1.2 cm. Hepatopedal flow. Gallbladder: No echogenic calculi, gallbladder wall thickening, or pericholecystic fluid. Common Bile Duct: 4.0 mm. No echogenic filling defect. Sonographic Nur's sign: Negative. Right kidney: 8.6 cm. Focal well-circumscribed anechoic 2.6 x 2.6 x 2.7 cm cyst is present in the interpolar region. No solid or cystic mass, echogenic calculi, or hydronephrosis. Increased parenchymal echogenicity. Pancreas: The pancreas was insufficiently visualized secondary to overlying bowel gas. Inferior vena cava: Normal. Aorta: Normal. Ascites: None. CONCLUSION: 1. No acute sonographic abnormality. 2. Increased renal cortical echogenicity may represent medical renal disease. Dictated by: Ajay Alanis M.D. on 07/27/2017 at 9: 54 Electronically approved by: Ajay Alanis M.D. on 07/27/2017 at 9:54 Dictated By: AJAY ALANIS MD 3 Transcribed By: CELI on 07/27/17953 COPY TO : VIRA ZUÑIGA MD HEPTOBILIARY W PHARM [place] [address] Patient Name: TAL EMANUEL MR #: [id number] : 1965 Age/Sex: 52 /M Req #: [id number] Adm Physician: SWEETIE LUCERO MD Ordered by: VIRA ZUÑIGA MD Report #: [id number] Location: MED/SURG2 Room /Bed: [facility] Procedure: [id number] NM/HEPTOBILIARY W PHARM Exam Date: 07/27/17 Exam Time: 1300 REPORT STATUS: Signed Hepatobiliary Scan with Gallbladder Ejection Fraction Clinical information: RUQ abdominal pain x 1 week Technique: Following intravenous administration of 5.4 millicuries of Tc-99m mebrofenin, dynamic images of the abdomen in the anterior projection were obtained through 36 minutes. Sincalide (CCK analog) 1.8 micrograms was administered intravenously over 30 minutes with additional imaging for determination of gallbladder ejection fraction. Discussion: Perfusion of the liver is normal. Extraction of tracer by the liver parenchyma is normal. Tracer appears promptly within the biliary tract. The gallbladder begins to fill at 10 minutes post injection of tracer and fills adequately. Tracer is seen in the small bowel during the sincalide infusion. There is no contractile response by the gallbladder to the pharmacologic dose of sincalide. No emptying of the gallbladder occurs during the 30 minute infusion. Impression: 1. Filling of the gallbladder excludes acute cystic duct obstruction/acute cholecystitis. 2. The gallbladder ejection fraction is undefined as there is no emptying of the gallbladder during the infusion of sincalide. This absence of a contractile response to sincalide supports the clinical diagnosis of chronic cholecystitis/gallbladder dyskinesia. Signed by: Dr. Scarlet Shaw M.D. on 07/27/2017 4:51 PM Dictated By: SCARLET SHAW MD 50 Transcribed By: DONNIE on 07/27/171650 COPY TO: VIRA ZUÑIGA MD
[2017-11-07] MEDS ORDERED: PANTOPRAZOLE 40 MG 10ML VIAL IV STA (06:41)
[2017-11-07] MEDS ORDERED: ONDANSETRON HCL INJ 2 MG/ML VIAL IV STA (06:41)
[2017-11-07] MEDS ORDERED: SODIUM CHLORIDE 0.9% 1000ML 1,000 ML IV SCH (06:45)
[2017-11-07] MEDS ORDERED: HYDROMORPHONE 1MG/1ML INJ IV STA (06:51)
[2017-11-07] MEDS ORDERED: FAMOTIDINE 20 MG/2 ML VIAL IV STA (07:39)
[2017-11-07] MEDS ORDERED: DICYCLOMINE HCL 20 MG TAB PO ONE ×2 (07:45→08:30)
[2017-11-07] MEDS ORDERED: ZOFRAN ODT4 MG SL (07:53)
[2017-11-07] MEDS ORDERED: PANTOPRAZOLE SO40 MG PO (07:54)
[2017-11-07] MEDS ORDERED: SIMETHICONE80 MG PO (07:57)
[2017-11-07] MEDS ORDERED: PANTOPRAZOLE 40 MG 10ML VIAL IV NR (08:15)
[2017-11-07] MEDS ORDERED: FAMOTIDINE 20 MG/2 ML VIAL IV NR (08:15)
[2017-11-07 08:25] VITALS: BP 184/109
== END 2017-11-07 08:05 | disposition home or self-care (01) ==
LOC: FSED 06:02
DX: R11.2 Nausea with vomiting, unspecified (principal); R19.7 Diarrhea, unspecified; R10.9 Unspecified abdominal pain; B34.9 Viral infection, unspecified; I12.0 Hypertensive chronic kidney disease with stage 5 chronic kidney disease or end stage renal disease; N18.6 End stage renal disease; Z99.2 Dependence on renal dialysis
CPT/HCPCS: 80048; 80076; 82553; 84484; 85025; 93005; 96374; 99283; J1170; J2405; J7030

== ENCOUNTER 2017-11-22 12:14 | Emergency (ER) | payer MEDICARE, OTHER ==
[~2017-11-22] VITALS: Ht 175.3 cm; Wt 80.7 kg
[~2017-11-22 12:14] MED LIST changes: +PANTOPRAZOLE SO40 MG PO; +SIMETHICONE80 MG PO; +ZOFRAN ODT4 MG SL
--- OUTSIDE RECORDS SUMMARY | 2017-11-22 12:17 | XMS REPORT | Continuity of Care Document ---
Author Author [facility] Organization [facility] Address [address] [place] [address] Phone Unavailable Care Team Providers Care Electronic Prepress System Operator Name Role Phone ROXANNE MTZ MD PCP Insurance Providers Guarantor Tal Rios Address [address] [place] [address] Email [email or web address] Payer [facility] Policy Number [id number] Subscriber's Name Tal Rios Relationship 18 Self / Same As Patient Group Number [id number] Effective Date 17 Payer Medicare A & B Policy Number [id number] Subscriber's Name Tal Rios Relationship 18 Self / Same As Patient Effective Date 13 Advance Directives Directive Response Recorded Date/Time Does the patient have an advance directive? Yes 07/27/17 5:41pm If yes, is advance directive on file with [facility]? No 12/28/16 5:59pm If not on file with [facility] will patient provide a copy? Yes 11/07/17 6:07am Do you have a Directive to Physician? No 11/07/17 6:07am Do you have a Medical Power of Basket Operator? No 11/07/17 6:07am Do you have an out of hospital Do Not Resuscitate Order? No 11/07/17 6:07am Do you have any special needs we should be aware of? No 11/07/17 6:07am Do you have a support person here with you today? No 11/07/17 6:07am Did patient receive Notice of Privacy Practices? Yes 11/07/17 6:07am Did patient receive patient rights and responsibilities? Yes 11/07/17 6:07am Problems Medical Problem Onset Date Status Weak [...] Tablet 10 Mg Oral Twice A Day Ondansetron (Zofran Odt) 4 Mg Tab.rapdis 4 Mg Sublingual Every 6 Hours as needed for Nausea 01 [address] sub tabs in [address] of ODT 11/07/17 Pantoprazole Sodium (Protonix) 40 Mg Tablet.dr 40 Mg Oral Daily 30 Tab 11/07/17 Simethicone 80 Mg Chew 80 Mg Oral Three Times A Day as needed for Abdominal Pain 30 Tab 11/07/17 Sucralfate 1 Gm Tablet 1 Gm Oral [...] information available. Plan of Care Discharge Date 11/07/17 8:05am Disposition HOME, SELF-CARE Condition at Discharge Improved Instructions/Education Provided Abdominal Pain - Adult Viral Syndrome - Adult Prescriptions See Medication Section Referrals ROXANNE MTZ MD Address: [address] [place], [place] [address] [address] [place] [address] Additional Instructions/Education Be sure to continue your normal dialysis and follow up with your PCP. Functional Status No functional status information available. Allergies, Adverse Reactions, Alerts Allergen Type Severity Reaction Status Last Updated Penicillin Allergy Intermediate SKIN PEELING Active 07/26/17 Sulfa (Sulfonamide Antibiotics) Allergy Intermediate ITCHING Active Morphine Allergy Intermediate CHEST PRESSURE Active 12/28/16 Prednisone Adverse Reaction Intermediate HOSPITALIZATION Active 12/28/16 Immunizations No immunization information available. Vital Signs Acute Vital Signs Vital Response Date/Time Temperature (Fahrenheit) 97.3 degrees F (97.6 - 99.5) 08/01/2017 11:20am Pulse Pulse Rate (adult) 97 bpm (60 - 90) 11/07/2017 8:25am Respiratory Rate 18 bpm (12 - 24) 11/07/2017 8:25am Blood Pressure 184/109 mm Hg 11/07/2017 8:25am Height 5 ft 9 in 11/07/2017 6:16am Weight 178 lb 11/07/2017 6:16am Body Mass Index 26.3 kg/m^2 11/07/2017 6:16am Results Laboratory Results Test Name Result Units Flags Reference Collection Date/Time Result Date/ Time Comments White Blood Count 5.57 x10e3/uL 4.8-10.8 07/31/2017 11:25am 07/31/2017 11:46am Red Blood Count 3.11 x10e6/uL L 4.3-5.7 07/31/2017 11:25am 07/31/2017 11 :46am Hemoglobin 9.6 g/dL L 14.0-18.0 07/31/2017 11:25am 07/31/2017 11:46am Hematocrit 28.3 % L 38.2-49.6 07/31/2017 [...] IM GRANULOCYTES % 0.2 % 0.0-1.0 07/31/2017 11:07/31/2017 11:46am Neutrophils # (Auto) 2.9 2.1-6.9 07/31/2017 11:07/31/2017 11: 46am Lymphocytes # (Auto) 2.0 1.0-3.2 07/31/2017 11:07/31/2017 11: 46am Monocytes # (Auto) 0.5 0.2-0.8 07/31/2017 11:07/31/2017 11:46am Eosinophils # (Auto) 0.1 0.0-0.4 07/31/2017 [...] Negative 07/28/2017 1:05pm 07/29 7:01am Performed at: [address] [id number] House Father: David Sol MD, Phone: [phone] Clostridium Difficile Toxin A & B POSITIVE H NEGATIVE 07/28/2017 8: 10am 07/28/2017 1:05pm Results called to FRANDY AVLAREZ at 1302 on 07/28/17 by Keenan Peralta. RB OK. Results called to JANN BRIZUELA in infection control at 1302 on 07/28/17 by Keenan Peralta. Testing on stool aspirate specimens is outside model maker plastic claims since specimen type not validated on this assay. Procedures Procedure Status Date Provider(s) RESECTION OF GALLBLADDER, PERCUTANEOUS ENDOSCOPIC APPROACH Completed ZI IRBY MD PERFORMANCE OF URINARY FILTRATION, <6 HRS/DAY Completed 07/28/17 SWEETIE LUCERO MD gallbladder Active 07/27/17 VIRA ZUÑIGA MD Encounters Encounter Location Arrival/Admit Date Discharge/Depart Date Attending Provider Departed Emergency Room [facility] 11/07/17 6:02am 8:05am SHERIN HORNE MD Discharged Inpatient [facility] 07/26/17 8:21pm 08/01/17 11:22am SWEETIE LUCERO MD
--- OUTSIDE RECORDS SUMMARY | 2017-11-22 12:17 | XMS REPORT | Clinical Summary ---
Author Author HORACIO [facility]Min[facility] Address Unknown Phone Unavailable Care Team Providers Care Pharmacy Resource Tech Name Role Phone PCP Unavailable Allergies Active [...] Note DR. 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 (HCC) 07/27/2017 Telephone Transplant Elinor Hernandez Kidney Transplant Pre-evaluation 06/07/2017 Abstract Transplant Gabriela Quintero 06/01/2017 Abstract Gabriela Herr after 11/21/2016 Social History Tobacco Use Types Packs/Day Years Used Date Never Assessed Sex Assigned at Date Recorded Not on file Last Filed Vital Signs Vital Sign Reading Time Taken Blood Pressure - - Pulse - - Temperature - - Respiratory Rate - - Oxygen Saturation - - Inhaled Oxygen - - Concentration Weight 73.9 kg (163 lb) 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 [address] [place] [address] Chelly Brooke MD, PhD * HIV-1 PCR, Quantitative (09/21/2017 11:33 AM) Component Value Ref Range HIV-1 PCR, Quantitative Less than 20 Cp/mL HIV RNA detected (A) HIV RNA not detected Specimen Performing Laboratory Blood [facility] [address] [address] [facility] This test uses a Real-Time Polymerase Chain Reaction (RT-PCR) methodology to detect a highly conserved region of the HIV-1 gag gene and was performed using the WILLAM AmpliPrep/WILLAM TaqMan HIV-1 test kit version 2.0 ([employer] Reportable range for this assay is 20 - 10,000,000 copies per mL (1.3 - 7.0 Log copies/mL). after 11/21/2016
[2017-11-22] MEDS ORDERED: HYDROMORPHONE 1MG/1ML INJ IV STA (12:39)
[2017-11-22] MEDS ORDERED: FAMOTIDINE 20 MG/2 ML VIAL IV STA (12:43)
[2017-11-22] MEDS ORDERED: ONDANSETRON HCL 4 MG ORAL DISINTEGRATING TAB PO ONE (12:45)
[2017-11-22 13:16] LABS: BASOPHILS # (AUTO) 0.1 (0.0-0.1); BASOPHILS % 0.8 % (0.0-1.0); EOSINOPHILS # (AUTO) 0.2 (0.0-0.4); EOSINOPHILS % 2.5 % (0.0-6.0); HEMATOCRIT 42.5 % (38.2-49.6); HEMOGLOBIN 14.4 g/dL (14.0-18.0); LYMPHOCYTES # (AUTO) 1.8 (1.0-3.2); LYMPHOCYTES % 27.7 % (18.0-39.1); MEAN CORPUSCULAR HEMOGLOBIN 29.7 pg (28-32); MEAN CORPUSCULAR HGB CONC 33.9 g/dL (31-35); MEAN CORPUSCULAR VOLUME 87.6 fL (81-99); MONOCYTES # (AUTO) 0.3 (0.2-0.8); MONOCYTES % 3.9 % (4.4-11.3); NEUTROPHILS # (AUTO) 4.2 (2.1-6.9); NEUTROPHILS % 64.8 % (38.7-80.0); PLATELET COUNT 160 x10e3/uL (140-360); RED BLOOD COUNT 4.85 x10e6/uL (4.3-5.7); RED CELL DISTRIBUTION WIDTH 14.6 % (11.7-14.4)
[2017-11-22] MEDS ORDERED: HYDROMORPHONE 2MG/ML INJ IV ONE (13:30)
[2017-11-22 13:32] LABS: ALBUMIN 2.5 g/dL (3.5-5.0); ALBUMIN/GLOBULIN RATIO 0.8 (0.8-2.0); ANION GAP 16.6 mmol/L (8-16); CALCIUM 9.2 mg/dL (8.4-10.2); CREATININE, SERUM 15.73 mg/dL (0.72-1.25)
[2017-11-22 13:33] LABS: POTASSIUM 6.6 mmol/L (3.5-5.1)
[2017-11-22] MEDS ORDERED: LABETALOL HCL 5 MG/ML 20ML VIAL IV STA (13:34)
[2017-11-22] MEDS ORDERED: SODIUM CHLORIDE 0.9% 50ML 50 ML ONE (14:56)
[2017-11-22] MEDS ORDERED: IOPAMIDOL 370 MG/ML 200 ML INFUS..BTL INJ ONE (14:57)
--- NOTE | 2017-11-22 15:36 | Diagnostic Imaging Report ---
PROCEDURE: CT ABDOMEN AND PELVIS WITH CONTRAST TECHNIQUE: The abdomen and pelvis were scanned utilizing a multidetector helical scanner from the diaphragm to the lesser trochanter after the IV administration of 100 cc of Isovue 370 and the oral administration of water. Coronal and sagittal multiplanar reformations were obtained. COMPARISON: None. INDICATIONS: ABDOMINAL PAIN FINDINGS: LOWER THORAX: Moderate pericardial effusion. Mild to moderate cardiomegaly. Mild basilar atelectasis. HEPATOBILIARY: No focal hepatic lesions. No biliary ductal dilatation. Reflux of contrast into hepatic veins. Right upper quadrant cholecystectomy clips. SPLEEN: No splenomegaly. PANCREAS: No focal masses or ductal dilatation. ADRENALS: No adrenal nodules. KIDNEYS/URETERS: Bilateral kidneys are atrophic. No hydronephrosis, stones, or solid mass lesions. 2.9 cm cyst in the superior pole the right kidney. Multiple vascular calcifications. 2 mm stone versus vascular calcification in the right kidney (series 2 image 27), and in the left kidney on image 26 and 27. PELVIC ORGANS/BLADDER: Unremarkable. PERITONEUM / RETROPERITONEUM: No free air. Moderate amount ascites LYMPH NODES: No lymphadenopathy. Small nonspecific mesenteric lymph nodes especially left abdomen, which could be reactive. VESSELS: Significant small vessel vascular calcifications. GI TRACT: No bowel obstruction. Mild diffuse small bowel wall thickening, likely related to ascites especially in the left abdomen. Stomach is decompressed. BONES AND SOFT TISSUES: Sclerotic bones consistent with renal osteodystrophy. IMPRESSION: 1. Moderate cardiomegaly with moderate pericardial effusion. Reflux of contrast into the hepatic veins indicating elevated right heart pressure. 2. Atrophic kidneys with diffuse small vessel vascular calcifications consistent with medical renal disease. 3. Moderate ascites. 4. Diffuse small bowel wall thickening especially in the left abdomen with small reactive lymph nodes, likely related to the ascites. Dictated by: Dale Howe M.D. on 11/22/2017 at 15:39 Electronically approved by: Dale Howe M.D. on 11/22/2017 at 15:39
[2017-11-22 16:51] VITALS: BP 199/109
[2017-11-22] MEDS ORDERED: TYLENOL WITH C1 EACH PO (16:51)
== END 2017-11-22 16:58 | disposition left against medical advice (07) ==
LOC: ER 12:14
DX: R10.13 Epigastric pain (principal); I12.0 Hypertensive chronic kidney disease with stage 5 chronic kidney disease or end stage renal disease; N18.6 End stage renal disease; Z99.2 Dependence on renal dialysis; E87.5 Hyperkalemia; R11.2 Nausea with vomiting, unspecified; R19.7 Diarrhea, unspecified; K52.9 Noninfective gastroenteritis and colitis, unspecified; B20 Human immunodeficiency virus [HIV] disease; K21.9 Gastro-esophageal reflux disease without esophagitis
CPT/HCPCS: 36415; 74177; 80053; 82150; 83690; 85025; 93005; 99284; J1170; J3490; Q9967

== ENCOUNTER 2018-01-01 18:57 | Emergency (ER) | payer MEDICARE, OTHER ==
[~2018-01-01] VITALS: Ht 175.3 cm; Wt 79.4 kg
[2018-01-01] MEDS ORDERED: PANTOPRAZOLE 40 MG 10ML VIAL IV ONE (19:30)
[2018-01-01] MEDS ORDERED: FAMOTIDINE 20 MG/2 ML VIAL IV ONE (19:30)
[2018-01-01] MEDS ORDERED: DICYCLOMINE HCL 20 MG TAB PO ONE (20:30)
[2018-01-01] MEDS ORDERED: CIPRO500 MG PO (21:49)
[2018-01-01] MEDS ORDERED: FLAGYL500 MG PO (21:49)
[2018-01-01] MEDS ORDERED: BENTYL10 MG/1 ML PO (21:49)
== END 2018-01-01 21:58 | disposition home or self-care (01) ==
LOC: FSED 18:57
DX: R10.31 Right lower quadrant pain (principal); R10.33 Periumbilical pain; K29.50 Unspecified chronic gastritis without bleeding; K52.9 Noninfective gastroenteritis and colitis, unspecified; K21.9 Gastro-esophageal reflux disease without esophagitis; K25.7 Chronic gastric ulcer without hemorrhage or perforation; I12.0 Hypertensive chronic kidney disease with stage 5 chronic kidney disease or end stage renal disease; N18.6 End stage renal disease; Z99.2 Dependence on renal dialysis; B20 Human immunodeficiency virus [HIV] disease
CPT/HCPCS: 74176; 80053; 81003; 82553; 84484; 85025; 99284

== ENCOUNTER 2019-06-03 10:02 | Inpatient (IN) | payer OTHER, MEDICARE ==
[~2019-06-03] VITALS: Ht 167.6 cm; Wt 78.5 kg
[~2019-06-03 10:02] MED LIST changes: +BENTYL10 MG/1 ML PO; +CIPRO500 MG PO; +FLAGYL500 MG PO
[2019-06-03] MEDS ORDERED: ONDANSETRON HCL 4 MG ORAL DISINTEGRATING TAB PO NR (10:45)
[2019-06-03] MEDS ORDERED: ONDANSETRON HCL 4 MG ORAL DISINTEGRATING TAB ONE (11:12)
[2019-06-03] MEDS ORDERED: HYOSCYAMINE 0.125 MG TAB PO STA (11:32)
[2019-06-03] MEDS ORDERED: DICYCLOMINE HCL 20 MG TAB PO STA (11:38)
[2019-06-03] MEDS ORDERED: DICYCLOMINE HCL 10 MG CAP ONE (11:43)
--- NOTE | 2019-06-03 11:50 | Diagnostic Imaging Report ---
EXAM: CT Abdomen and Pelvis WITHOUT contrast INDICATION: ^[id number] ^[id number] COMPARISON: None. TECHNIQUE: Abdomen and pelvis were scanned utilizing a multidetector helical scanner from the lung base to the pubic symphysis without administration of IV contrast. Absence of intravenous contrast decreases sensitivity for detection of focal lesions and vascular pathology. Coronal and sagittal reformations were obtained. Routine protocol was performed. IV CONTRAST: None. ORAL CONTRAST: None RADIATION DOSE: Total DLP: 677.6 mGy*cm Estimated effective dose: (DLP x 0.015 x size factor) mSv COMPLICATIONS: None FINDINGS: LINES and TUBES: None. LOWER THORAX: Coronary artery calcifications. Trace pericardial effusion. There appears to be cardiomegaly on limited evaluation. HEPATOBILIARY: No focal hepatic lesions. No biliary ductal dilation. GALLBLADDER: Cholecystectomy. SPLEEN: No splenomegaly. PANCREAS: No focal masses or ductal dilatation. ADRENALS: No adrenal nodules KIDNEYS/URETERS: No hydronephrosis. No cystic or solid mass lesions. 3 mm nonobstructing calcified stone in the upper pole of the right kidney on series 2, image 27. Diffuse vascular calcifications in both kidneys. No calcified stones in the ureters. GI TRACT: Circumferential wall thickening involving the proximal descending colon and adjacent loop of small bowel, better seen on series 2, image 40 and coronal image 40. A few scattered diverticulosis throughout the colon. No bowel dilatation or obstruction. The appendix is diffusely mildly dilated measuring up to 10 mm in diameter and associated with diffuse calcified wall and few a scattered appendicolith. No surrounding fat stranding or fluid collections. PELVIC ORGANS/BLADDER: Unremarkable. LYMPH NODES: Multiple subcentimeter noncalcified mesenteric lymph nodes with the largest measuring 0.9 cm in the left side of the abdomen on coronal image 39. VESSELS: Diffuse atherosclerotic calcifications of the mesenteric arteries, abdominal aorta and pelvic arteries without aneurysm. PERITONEUM / RETROPERITONEUM: No free air or fluid. There is diffuse fat stranding throughout the mesenteric fat in the upper abdomen, mainly surrounding the mesenteric vessels. BONES: Unremarkable. SOFT TISSUES: Unremarkable. IMPRESSION: 1. Circumferential wall thickening of the proximal descending colon involving an adjacent loop of small bowel as well as extensive fat stranding within the mesenteric fat and multiple subcentimeter mesenteric lymph nodes. Overall findings are suggestive of colitis. Cannot exclude underlying malignancy. Recommend follow-up CT in 2 weeks and GI consultation. 2. Mild dilatation of the appendix with diffuse calcified wall but no surrounding fat stranding or fluid collections likely representing chronic inflammation. 3. Nonobstructing right nephrolithiasis. Signed by: Dr. Zainab Marie M.D. on 06/03/2019 11:47 AM
[2019-06-03] MEDS ORDERED: LEVOFLOXACIN 500 MG TAB PO ONE (12:15)
[2019-06-03] MEDS ORDERED: METRONIDAZOLE 250 MG TAB PO ONE (12:15)
[2019-06-03] MEDS ORDERED: LEVOFLOXACIN 500 MG TAB ONE (12:28)
[2019-06-03] MEDS ORDERED: METRONIDAZOLE 500 MG TAB ONE (12:28)
[2019-06-03] MEDS ORDERED: METRONIDAZOLE 500 MG TAB PO ONE (13:00)
[2019-06-03] MEDS ORDERED: SODIUM CHLORIDE FLUSH 10 ML SYR INJ PRN (13:15)
[2019-06-03] MEDS ORDERED: LEVOFLOXACIN 500MG/D5W 100ML 100 ML IV ONE ×2 (13:15→13:45)
[2019-06-03] MEDS ORDERED: METRONIDAZOLE 500MG/NS 100ML 100 ML IV ONE ×2 (13:15→13:45)
[2019-06-03] MEDS ORDERED: LEVOFLOXACIN 250MG/D5W 50ML 50 ML IV SCH (13:15)
--- NOTE | 2019-06-03 14:50 | NUR ---
RCD PT BY BED PT IS ALERT AND ORIENTED VITALS CHECKED PT RESTING ON BED NO SIGNS OF ANY DISTRESS NOTED ADMISSION ASSESSMENT AND HISTORY DONE INSTRUCTED THE PT REGARDING HOSPITAL POLICY AND ROUTINE BED LOW AND LOCKED CALL LIGHT IN REACH
[2019-06-03] MEDS ORDERED: SODIUM CHLORIDE 0.9% 250ML 250 ML ONE (15:29)
[2019-06-03 15:36] VITALS: BP 148/92
[2019-06-03 15:41] VITALS: BP 148/92
[2019-06-03] MEDS ORDERED: ACETAMINOPHEN 325 MG TAB PO PRN (15:45)
[2019-06-03] MEDS ORDERED: ONDANSETRON HCL INJ 2MG/ML 2ML 2 MG/ML VIAL IV PRN (15:45)
[2019-06-03] MEDS ORDERED: SODIUM CHLORIDE 0.9% 1000ML 1,000 ML IV SCH (15:45)
[2019-06-03] MEDS ORDERED: TRAZODONE HCL 50 MG TAB PO PRN (15:45)
[2019-06-03 16:00] VITALS: BP 148/92
[2019-06-03] MEDS ORDERED: ACETAMINOPHEN/CODEINE 300MG - 30MG TAB PO PRN (17:00)
[2019-06-03] MEDS: FOSAMPRENAVIR CALCIUM PO SCH (17:00)
[2019-06-03] MEDS ORDERED: ONDANSETRON HCL 4 MG ORAL DISINTEGRATING TAB SL PRN (17:00)
[2019-06-03] MEDS: ABACAVIR SULFATE 300 MG PO SCH (17:00)
[2019-06-03] MEDS ORDERED: SIMETHICONE 80 MG CHEW PO PRN (17:00)
[2019-06-03] MEDS: ENOXAPARIN 30 MG/0.3 ML SYR SC SCH (17:00)
[2019-06-03] MEDS: SUCRALFATE 1 GM TAB PO SCH ×2 (17:22→20:30)
[2019-06-03] MEDS: CARVEDILOL 12.5 MG TAB PO SCH (17:23)
[2019-06-03] MEDS: METRONIDAZOLE 500MG/NS 100ML 100 ML IV SCH ×2 (17:23→23:25)
[2019-06-03] MEDS ORDERED: MINOXIDIL 2.5 MG TAB PO SCH (17:30)
--- NOTE | 2019-06-03 18:44 | NUR ---
PT RESTING ON BED BED SIDE REPORT GIVEN TO ONCOMING NURSE
[2019-06-03 20:00] VITALS: BP 166/104
[2019-06-03 20:16] VITALS: BP 166/104
--- NOTE | 2019-06-03 22:00 | Consultation ---
DATE OF CONSULTATION: 06/03/2019 REASON FOR CONSULTATION: Abdominal pain, fever, chills, colitis. HISTORY OF PRESENT ILLNESS: This patient, who is well known to me, is a 54-year-old male with history of end-stage renal disease on hemodialysis, history of HIV, history of coronary artery disease. The patient is coming with abdominal pain, diarrhea, fever, chills for 5 days. The patient was recently in the hospital. The patient is known to have history of colitis before he had several colonoscopies. No specific finding a year or so ago. He comes in with abdominal pain, cramp, colicky, diffuse, getting worse, fever, chills, and there is some blood in the stool, so the patient came to emergency room where he was being evaluated and admitted, discussed with the ER physician. PAST MEDICAL HISTORY: Hypertension, congestive heart failure, end-stage renal disease on hemodialysis, coronary artery disease, HIV. PAST SURGICAL HISTORY: CABG, cholecystectomy. ALLERGIES: NKA. SOCIAL HISTORY: There is no smoking, drug abuse, or alcohol abuse currently. FAMILY HISTORY: Otherwise noncontributory. REVIEW OF SYSTEMS: Besides as mentioned above: HEENT: Negative. PULMONARY: Negative. GI: As above. : Negative. SKIN: There are no other rashes. MEDICATION LIST: All reviewed. He is on Norvasc, Coreg, Sustiva, lamivudine, Lexiva, but I think we changed his HIV medications recently. He does not have it with him. I will have to double check on that. LABORATORY DATA: Still pending as of this dictation. As mentioned above, he is in the emergency room. PHYSICAL EXAMINATION: GENERAL: He is currently alert, oriented, does not seem to be in acute distress. VITAL SIGNS: Stable. Currently afebrile. HEENT: Not icteric. NECK: Supple. CHEST: Clear bilateral. COR: S1 and S2. No S3, S4, or murmur. ABDOMEN: Soft, had diffuse discomfort. EXTREMITIES: No edema. SKIN: There is no rash. DIAGNOSTIC DATA: A CAT scan, which was done showed circumferential wall thickening involving the proximal descending colon and adjacent loop of the small bowel. His white count is still pending. IMPRESSION: 1. Colitis. 2. End-stage renal disease, on hemodialysis. 3. Human immunodeficiency virus. 4. History of coronary artery disease. I would recommend to put the patient on Flagyl 500 IV q.8, Levaquin 250 mg p.o. IV piggyback q.48 hours. Admit the patient to observe him. GI evaluation. Continue all his antiretroviral medication. We will double-check. We will follow closely. I am concerned about the patient since he has history of coronary artery disease, CABG recently with colitis. We will follow with you. Thank you for asking me to see this patient. MD ARMAND Harris/ARIANA /[id number]
[2019-06-03] MEDS ORDERED: CLONIDINE HCL0.3 MG PO (22:15)
[2019-06-03] MEDS ORDERED: ISOSORBIDE MONO60 MG (22:16)
[2019-06-03] MEDS ORDERED: NEPHRO-VITE TABL1 EA PO (22:27)
[2019-06-03] MEDS ORDERED: ASPIRIN81 MG (22:27)
[2019-06-03] MEDS ORDERED: OMEPRAZOLE40 MG (22:27)
[2019-06-03] MEDS ORDERED: ALPRAZOLAM0.25 M1 PO (22:27)
[2019-06-03] MEDS ORDERED: DOCUSATE SODIU100 MG PO (22:27)
[2019-06-03] MEDS ORDERED: FLUOXETINE HCL20 MG PO (22:27)
[2019-06-03] MEDS ORDERED: DOXAZOSIN MESYLA2 MG PO (22:27)
[2019-06-04] VITALS (8 sets, daily range): BP systolic 155–191; BP diastolic 77–100
--- NOTE | 2019-06-04 00:10 | History and Physical ---
CHIEF COMPLAINT: Abdominal pain, diarrhea. HISTORY OF PRESENT ILLNESS: A 54-year-old male with known history of HIV, has a history of colitis, also hypertension. He presented from a freestanding ER with complaints of abdominal pain, colicky with underlying diarrhea, ongoing for the last several days. The patient recently had a CABG performed back in March of 2019. Reports he did very well postoperatively with no complaints. He reports having diarrhea, similar findings to this admission in the past, but now he came in due to worsening abdominal pain and diarrhea. He denies any mucus or blood in the stool. He denies any nausea or vomiting. Does endorse having some decreased oral intake and dehydration. The patient was seen and evaluated at bedside on the medical floor. He is currently doing well with no other complaints at this time. REVIEW OF SYSTEMS: Pertinent positives: Abdominal pain, decreased oral intake. Pertinent negatives: Denies any chest pain, palpitation, dysuria, hematuria, frequency, urgency, lightheadedness, dizziness, cough, congestion, fever, or any other complaints. The rest of the 14-point review of systems are reviewed with the patient and are negative. ALLERGIES: PREDNISONE, MORPHINE, SULFA, PENICILLINS. HOME MEDICATIONS: Tylenol No. 3, amlodipine, PhosLo, Cipro, lamivudine, lisinopril, Flagyl, minoxidil, Zofran, Protonix, simethicone, Carafate, abacavir, Coreg, dicyclomine, and Lexiva. PAST MEDICAL HISTORY: HIV, irritable bowel syndrome, hypertension, ESRD on dialysis, hypertension. SURGICAL HISTORY: Dialysis catheters and fistulas. FAMILY HISTORY: Hypertension and diabetes. SOCIAL HISTORY: No drugs. No alcohol. Does not smoke. Good social support. OBJECTIVE: VITAL SIGNS: Temperature is 96.5, pulse is 86, respiratory rate is 18, blood pressure 140/99, pulse ox 96% on room air. LABORATORY DATA: Labs show sodium 140, potassium 4, chloride 103, bicarbonate 28, BUN 37, creatinine 9.5, BUN 37, glucose 132, ALT 12, amylase 72, AST 20, total bilirubin 0.3, GGT 24, albumin 2.5. White count 7.3, hemoglobin 11.3, hematocrit 35, platelets of 170. IMAGING STUDIES: Showed circumferential wall thickening of the proximal descending colon involving adjacent loop of small bowel as well as extensive fat stranding within the mesenteric fat and multiple subcentimeter mesenteric lymph nodes. Overall findings suggestive of colitis. Cannot rule out any kind of malignancy. Repeat CT and GI consultation recommended. diffuse calcified wall, but no surrounding fat stranding or fluid collection likely represent chronic inflammation. Nonobstructing right nephrolithiasis. PHYSICAL EXAMINATION: GENERAL: No acute distress, alert and oriented x3. Cooperative on examination. HEENT: Head; normocephalic, atraumatic. Eyes; pupils are equal, round, and reactive to light bilaterally. Extraocular movements intact bilaterally. NECK: Supple. Good range of motion. Throat, no evidence of erythema or exudates in the posterior pharynx. Has poor dentition. PULMONARY: Clear to auscultation bilaterally. No wheezing, rales, or rhonchi. No crackles appreciated. CARDIOVASCULAR: Positive S1 and S2. No murmurs, rubs, or gallops appreciated. ABDOMEN: Soft, nondistended, and nontender to palpation. Bowel sounds present. MUSCULOSKELETAL: Strength is 5/5 throughout. No evidence of any muscle deficits on examination. No weakness appreciated. NEUROLOGIC: Cranial nerves II through XII are grossly intact. No evidence of any neurological deficits on exam. SKIN: Intact. Warm to touch. Good cap refill. PSYCHIATRIC: Normal affect and mood. EXTREMITIES: No edema. Good range of motion throughout. IMPRESSION: 1. Acute colitis. 2. Nausea, vomiting, abdominal pain secondary to #1. 3. Human immunodeficiency virus. 4. Hypertension. 5. End-stage renal disease, on dialysis. PLAN: At this time, as for his acute colitis, the patient has been started on IV antibiotics. ID has been consulted. C diff toxin, stool cultures have been collected. GI has been consulted. As for his hypertension, we will continue same home medications with no changes with p.r.n. hydralazine. 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 We will restart his antiretroviral medication therapy being managed by ID. We will continue same home medications for now. Get a.m. labs. PT/OT evaluation. Lovenox for DVT prophylaxis. Consultants ID and GI, may need General Surgery if not resolved. MD ONI Reyes/HEATHERL /[id number]
[2019-06-04] MEDS: DICYCLOMINE HCL 10 MG CAP PO PRN ×2 (01:45→10:25)
[2019-06-04 05:12] LABS: BASOPHILS % 0.5 % (0.0-1.0); EOSINOPHILS # (AUTO) 0.1 (0.0-0.4); EOSINOPHILS % 2.2 % (0.0-6.0); HEMATOCRIT 32.1 % (38.2-49.6); HEMOGLOBIN 10.2 g/dL (14.0-18.0); LYMPHOCYTES # (AUTO) 2.3 (1.0-3.2); LYMPHOCYTES % 37.1 % (18.0-39.1); MEAN CORPUSCULAR HEMOGLOBIN 27.9 pg (28-32); MEAN CORPUSCULAR HGB CONC 31.8 g/dL (31-35); MEAN CORPUSCULAR VOLUME 87.9 fL (81-99); MONOCYTES # (AUTO) 0.4 (0.2-0.8); MONOCYTES % 6.3 % (4.4-11.3); NEUTROPHILS # (AUTO) 3.4 (2.1-6.9); NEUTROPHILS % 53.7 % (38.7-80.0); PLATELET COUNT 149 x10e3/uL (140-360); RED BLOOD COUNT 3.65 x10e6/uL (4.3-5.7); RED CELL DISTRIBUTION WIDTH 14.8 % (11.7-14.4)
[2019-06-04] MEDS: METRONIDAZOLE 500MG/NS 100ML 100 ML IV SCH ×4 (05:22→23:15)
[2019-06-04 05:37] LABS: ANION GAP 18.2 mmol/L (8-16); CALCIUM 8.6 mg/dL (8.4-10.2); CREATININE, SERUM 10.71 mg/dL (0.72-1.25); POTASSIUM 4.2 mmol/L (3.5-5.1)
--- NOTE | 2019-06-04 07:05 | NUR ---
RCD PT AT BED PT IS ALERT AND ORIENTED PT RESTING ON BED IV PATENT BY SALINE FLUSH BED LOW AND LOCKED CALL LIGHT IN REACH
[2019-06-04] MEDS: SUCRALFATE 1 GM TAB PO SCH ×4 (07:30→20:57)
[2019-06-04] MEDS: PANTOPRAZOLE SOD 40 MG TABEC PO SCH ×2 (08:30→16:30)
[2019-06-04] MEDS ORDERED: ALPRAZOLAM 0.25 MG TAB PO PRN (08:30)
[2019-06-04] MEDS: CARVEDILOL 12.5 MG TAB PO SCH ×2 (09:00→16:48)
[2019-06-04] MEDS: ABACAVIR SULFATE 300 MG PO SCH ×2 (09:00→16:48)
[2019-06-04] MEDS: ISOSORBIDE MONONITRATE 30 MG TAB CR PO SCH (09:00)
[2019-06-04] MEDS: FOSAMPRENAVIR CALCIUM PO SCH ×2 (09:00→16:48)
[2019-06-04] MEDS: CLONIDINE HCL 0.3 MG TAB PO SCH ×3 (09:00→20:57)
[2019-06-04] MEDS: LAMIVUDINE PO SCH (09:00)
[2019-06-04] MEDS: [UNRECOGNIZED DRUG - OTHER] PO SCH (09:00)
[2019-06-04] MEDS: CALCIUM ACETATE 667 MG GELCAP PO SCH (09:00)
[2019-06-04] MEDS ORDERED: PANTOPRAZOLE SOD 40 MG TABEC PO SCH (09:00)
[2019-06-04] MEDS: FLUOXETINE HCL 20 MG CAP PO SCH (09:00)
[2019-06-04] MEDS: LISINOPRIL 20 MG TAB PO SCH (09:00)
[2019-06-04] MEDS ORDERED: AMLODIPINE BESYLATE 10 MG TAB PO SCH (09:00)
--- NOTE | 2019-06-04 10:00 | NUR ---
ONE TIME DIARRHEA SAMPLE SEND TO LAB
[2019-06-04] MEDS: NIFEDIPINE CR 30 MG TAB PO SCH (12:15)
--- NOTE | 2019-06-04 12:50 | Progress Note ---
DATE: 06/04/2019 Medicine Progress Note SUBJECTIVE: The patient reports having one bout of diarrhea this morning. Yesterday after I evaluated him, he did not have anymore diarrhea. He reports that he is a little bit more hungry. We are going to advance his diet to full liquid diet. PHYSICAL EXAMINATION: VITAL SIGNS: Temperature is 96.2, pulse 75, respiratory rate is 18, blood pressure was 166/95, and pulse ox 95% on room air. GENERAL: Not in acute distress. Alert and oriented x3. Cooperative on examination. HEENT: Head; normocephalic, atraumatic. Eyes; pupils are equal, round, and reactive to light bilaterally. Extraocular movements intact bilaterally. Throat; no evidence of erythema or exudates in the posterior pharynx. Has poor dentition. NECK: Supple. Good range of motion. PULMONARY: Clear to auscultation bilaterally. No wheezing, no rales, no rhonchi, no crackles appreciated. CARDIOVASCULAR: Positive S1 and S2. No murmurs, rubs, or gallops appreciated. ABDOMEN: Soft, nondistended, and nontender to palpation. Bowel sounds present. MUSCULOSKELETAL: Strength is 5/5 throughout. No evidence of any muscle deficits on examination. No weakness appreciated. NEUROLOGIC: Cranial nerves II through XII grossly intact. No evidence of any neurological deficits on exam. SKIN: Intact. Warm to touch. Good cap refill. PSYCHIATRIC: Normal affect and mood. EXTREMITIES: No edema. Good range of motion throughout. LABORATORY DATA: Labs show white count 6.2, hemoglobin 10.2, hematocrit is 32, and platelets of 149. Chemistry; sodium 135, potassium 4.2, chloride 100, bicarb 21, anion gap of 18, BUN is 44, and creatinine is 10.7. Stool lactoferrin was positive. Stool calprotectin is pending. C. difficile toxin is pending. MICROBIOLOGY: Stool cultures are pending. IMAGING STUDIES: CT abdomen and pelvis reviewed, showed evidence of colitis. IMPRESSION: 1. Acute colitis with underlying diarrhea. 2. Nausea, vomiting, and abdominal pain secondary to #1. 3. Human immunodeficiency virus. 4. Hypertension. 5. End-stage renal disease, on hemodialysis, Wednesday, Wednesday, and Wednesday. PLAN: At this time, we will continue with antibiotics for his acute colitis. His diarrhea seems to have improved. Awaiting for C. difficile toxin and stool cultures results. ID is following closely. His nausea and vomiting resolved. We will advance his diet to full liquid. He will start his anti-retroviral medication therapy, which is also being managed by ID. Blood pressure is slightly elevated. I will go ahead and adjust his antihypertensive medications. Get morning labs. PT/OT evaluation. Lovenox for DVT prophylaxis. 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 Consultants are ID and GI as well as Nephrology if this physician does come to this facility. Otherwise, we will continue to monitor very closely. MD ONI Reyes/ARIANA /[id number]
--- NOTE | 2019-06-04 13:52 | NUR ---
PAGED TO [facility] AND TALKED MARK REGARDING HEMODIALYSIS SCHEDULING SHE SAID SHE WILL ARRANGE THAT
--- NOTE | 2019-06-04 14:13 | NUR ---
[id number] late entery progress note
[2019-06-04] MEDS: ENOXAPARIN 30 MG/0.3 ML SYR SC SCH (16:48)
--- NOTE | 2019-06-04 18:50 | NUR ---
PT RESTING ON BED BED SIDE REPORT GIVEN TO ONCOMING NURSE
[2019-06-04] MEDS: DOXAZOSIN MESYLATE 2 MG TAB PO SCH (20:57)
[2019-06-05] VITALS (8 sets, daily range): BP systolic 155–198; BP diastolic 77–98
[2019-06-05 05:21] LABS: BASOPHILS % 0.7 % (0.0-1.0); EOSINOPHILS # (AUTO) 0.1 (0.0-0.4); EOSINOPHILS % 2.9 % (0.0-6.0); HEMATOCRIT 28.4 % (38.2-49.6); HEMOGLOBIN 9.3 g/dL (14.0-18.0); LYMPHOCYTES # (AUTO) 2.5 (1.0-3.2); LYMPHOCYTES % 54.6 % (18.0-39.1); MEAN CORPUSCULAR HEMOGLOBIN 28.4 pg (28-32); MEAN CORPUSCULAR HGB CONC 32.7 g/dL (31-35); MEAN CORPUSCULAR VOLUME 86.9 fL (81-99); MONOCYTES # (AUTO) 0.3 (0.2-0.8); MONOCYTES % 5.5 % (4.4-11.3); NEUTROPHILS # (AUTO) 1.6 (2.1-6.9); NEUTROPHILS % 36.1 % (38.7-80.0); PLATELET COUNT 139 x10e3/uL (140-360); RED BLOOD COUNT 3.27 x10e6/uL (4.3-5.7); RED CELL DISTRIBUTION WIDTH 14.6 % (11.7-14.4)
[2019-06-05 05:40] LABS: ANION GAP 19.2 mmol/L (8-16); CALCIUM 8.5 mg/dL (8.4-10.2); CREATININE, SERUM 12.18 mg/dL (0.72-1.25); POTASSIUM 4.2 mmol/L (3.5-5.1)
[2019-06-05] MEDS: METRONIDAZOLE 500MG/NS 100ML 100 ML IV SCH ×4 (05:57→23:05)
[2019-06-05] MEDS: PANTOPRAZOLE SOD 40 MG TABEC PO SCH ×2 (08:11→17:14)
[2019-06-05] MEDS: NIFEDIPINE CR 30 MG TAB PO SCH (08:16)
[2019-06-05] MEDS: LISINOPRIL 20 MG TAB PO SCH (08:16)
[2019-06-05] MEDS: ISOSORBIDE MONONITRATE 30 MG TAB CR PO SCH (08:16)
[2019-06-05] MEDS: ASPIRIN 81 MG CHEW TAB PO SCH (08:16)
[2019-06-05] MEDS: CARVEDILOL 12.5 MG TAB PO SCH ×3 (08:16→20:38)
[2019-06-05] MEDS: CALCIUM ACETATE 667 MG GELCAP PO SCH (08:16)
[2019-06-05] MEDS: FLUOXETINE HCL 20 MG CAP PO SCH (08:18)
[2019-06-05] MEDS: SUCRALFATE 1 GM TAB PO SCH ×4 (08:22→20:38)
[2019-06-05] MEDS: [UNRECOGNIZED DRUG - OTHER] PO SCH (09:00)
[2019-06-05] MEDS: FOSAMPRENAVIR CALCIUM PO SCH ×2 (09:00→17:00)
[2019-06-05] MEDS: LAMIVUDINE PO SCH (09:00)
[2019-06-05] MEDS: CLONIDINE HCL 0.3 MG TAB PO SCH ×3 (09:00→20:38)
[2019-06-05] MEDS: ABACAVIR SULFATE 300 MG PO SCH ×2 (09:00→17:00)
--- NOTE | 2019-06-05 12:59 | Progress Note ---
DATE: 06/05/2019 Medicine Progress Note SUBJECTIVE: The patient has no more diarrhea. His abdominal pain is improved. Change diet to regular diet. He is doing well. DC IV fluids. No overnight events. PHYSICAL EXAMINATION: VITAL SIGNS: He is afebrile, pulse 76, respiratory rate is 18, blood pressure is 161/87, pulse ox 96% on room air. GENERAL: Not in acute distress. Alert and oriented x3. Cooperative on examination. HEENT: Head; normocephalic, atraumatic. Eyes; pupils are equal, round, and reactive to light bilaterally. Extraocular movements intact bilaterally. Throat; no evidence of erythema or exudates in the posterior pharynx. Has poor dentition. NECK: Supple. Good range of motion. PULMONARY: Clear to auscultation bilaterally. No wheezing, no rales, no rhonchi, no crackles appreciated. CARDIOVASCULAR: Positive S1 and S2. No murmurs, rubs, or gallops appreciated. ABDOMEN: Soft, nondistended, and nontender to palpation. Bowel sounds present. MUSCULOSKELETAL: Strength is 5/5 throughout. No evidence of any muscle deficits on examination. No weakness appreciated. NEUROLOGIC: Cranial nerves 2 through 12 grossly intact. No evidence of any neurological deficits on exam. SKIN: Intact. Warm to touch. Good cap refill. PSYCHIATRIC: Normal affect and mood. EXTREMITIES: No edema. Good range of motion throughout. LABORATORY DATA: Reviewed show white count 4.5, hemoglobin 9.2, hematocrit 28, platelets of 139. Chemistry; sodium 132, potassium 4.2, chloride 97, bicarb 20, anion gap of 19, BUN 52, creatinine is 12. C diff toxin negative. Stool cultures are pending. IMPRESSION: 1. Acute colitis with underlying diarrhea, now resolved. 2. Nausea, vomiting and abdominal pain secondary to acute colitis with underlying diarrhea. 3. Human immunodeficiency virus. 4. Hypertension. 5. End-stage renal disease on dialysis Wednesday, Wednesday, and Wednesday. PLAN: At this time, continue with antibiotics. Stop IV fluids, pain control. Diarrhea, resolved. Advance his diet to renal diet. Continue with anti-retroviral therapy. Continue with his antihypertensive medications. Encourage ambulation. Lovenox for DVT prophylaxis. 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 Consultants ID and GI and Nephrology, but does not come to this facility. Otherwise, we will continue with same plan of care and monitor very closely. MD ONI Reyes/ARIANA /[id number]
[2019-06-05] MEDS: ENOXAPARIN 30 MG/0.3 ML SYR SC SCH (17:13)
--- NOTE | 2019-06-05 17:14 | NUR ---
Dialysis nurse in room about to do dialysis, holding BP medication and 1800 Antibiotic now
[2019-06-05] MEDS ORDERED: SODIUM CHLORIDE 0.9% 1000ML 2,000 ML ONE (17:21)
--- NOTE | 2019-06-05 17:41 | Progress Note ---
DATE: SUBJECTIVE: Mr. Rios is feeling better. His abdominal pain is better. His diarrhea seems to be better. There is no more blood in the stool. REVIEW OF SYSTEMS: HEENT: Negative. PULMONARY: Negative. CARDIAC: Negative. PHYSICAL EXAMINATION: GENERAL: He is currently alert, oriented, does not seem to be in acute distress. VITAL SIGNS: Stable. Afebrile. Temperature 98, heart rate of 76. HEENT: Normocephalic. Not icteric. NECK: Supple. No JVD. No lymphadenopathy. No thyromegaly. CHEST: Clear bilateral. COR: S1, S2. No murmur. ABDOMEN: Soft. Bowel sounds present. No tenderness. EXTREMITIES: No edema. SKIN: No rash. IMPRESSION: 1. Colitis, resolved. Continue with the cultures and antibiotic for 2 weeks. 2. Nausea, vomiting, diarrhea, and abdominal pain, better. 3. Human immunodeficiency virus. Continue his anti-retroviral medication. He is taking medication. 4. End-stage disease, on hemodialysis. The patient is on target for renal transplant. Discussed with the medical team. We will follow with you. Discussed with the patient. MD ARMAND Harris/RAIANA /[id number]
--- NOTE | 2019-06-05 17:56 | Progress Note ---
DATE: SUBJECTIVE: Mr. Hernandez is seen and examined. Doing better. No new complaints. REVIEW OF SYSTEMS: His diarrhea has improved. HEENT: Negative. PULMONARY: Negative. CARDIAC: Negative. The patient is taking his antiretroviral medication. He is doing really good otherwise. OBJECTIVE: GENERAL: He is currently alert, oriented, does not seem to be in acute distress. VITAL SIGNS: Stable, currently afebrile. HEENT: He is not icteric. NECK: Supple. CHEST: Clear. HEART: S1 and S2. No S3, S4 or murmur. ABDOMEN: Soft. Bowel sounds present. No tenderness. EXTREMITIES: No edema. ASSESSMENT: 1. Colitis is getting better. 2. Human immunodeficiency virus. Continue with medication and viral load is undetectable. CD4 is more than 500, going for renal transplant. 3. End-stage renal disease, on hemodialysis. 4. Coronary artery disease, status post CABG. PLAN: 1. Discussed with the patient at length. 2. Discussed with medical team. MD ARMAND Harris/MODL /[id number]
--- NOTE | 2019-06-05 20:04 | NUR ---
pt received. at time dialysis in progress, dialysis nurse at bedside. no distress noted. call klein within reach.
[2019-06-05] MEDS: DOXAZOSIN MESYLATE 2 MG TAB PO SCH (20:38)
[2019-06-05] MEDS ORDERED: ZOLPIDEM TARTRATE 5 MG TAB PO PRN (21:00)
[2019-06-06] VITALS: BP 176/80
[2019-06-06 04:00] VITALS: BP 180/88
--- NOTE | 2019-06-06 04:00 | NUR ---
pt resting. no ss of distress noted. call klein within reach.
[2019-06-06] MEDS: METRONIDAZOLE 500MG/NS 100ML 100 ML IV SCH ×2 (05:30→13:28)
--- NOTE | 2019-06-06 07:10 | NUR ---
pt alert resp even and unlabored pt able to make needs known, no c/o pain nor distress noted, call light in reach.
[2019-06-06 08:52] VITALS: BP 150/71
[2019-06-06] MEDS: ASPIRIN 81 MG CHEW TAB PO SCH (08:57)
[2019-06-06] MEDS: FOSAMPRENAVIR CALCIUM PO SCH ×2 (08:57→16:17)
[2019-06-06] MEDS: SUCRALFATE 1 GM TAB PO SCH ×3 (08:57→16:17)
[2019-06-06] MEDS: PANTOPRAZOLE SOD 40 MG TABEC PO SCH ×2 (08:57→16:17)
[2019-06-06] MEDS: ABACAVIR SULFATE 300 MG PO SCH ×2 (08:57→16:17)
[2019-06-06] MEDS: LAMIVUDINE PO SCH (08:58)
[2019-06-06] MEDS: ISOSORBIDE MONONITRATE 30 MG TAB CR PO SCH (08:58)
[2019-06-06] MEDS: [UNRECOGNIZED DRUG - OTHER] PO SCH (08:58)
[2019-06-06] MEDS: CLONIDINE HCL 0.3 MG TAB PO SCH ×2 (08:58→16:17)
[2019-06-06] MEDS: LISINOPRIL 20 MG TAB PO SCH (08:58)
[2019-06-06] MEDS: CALCIUM ACETATE 667 MG GELCAP PO SCH (08:58)
[2019-06-06] MEDS: FLUOXETINE HCL 20 MG CAP PO SCH (08:59)
[2019-06-06] MEDS: NIFEDIPINE CR 30 MG TAB PO SCH (08:59)
[2019-06-06 11:55] VITALS: BP 180/96
--- NOTE | 2019-06-06 15:39 | Discharge Summary ---
FINAL DISCHARGE DIAGNOSES: 1. Acute colitis with diarrhea, now resolved. 2. Nausea, vomiting, abdominal pain, resolved. 3. Human immunodeficiency virus. 4. Hypertension. 5. End-stage renal disease, on dialysis. CONSULTANTS: Infectious Disease. PHYSICAL EXAMINATION: VITAL SIGNS: Temperature is 97.5, pulse 81, respiratory rate is 20, blood pressure 150/71, pulse ox 94% on room air. LABORATORY FINDINGS: Show white count 4.5, hemoglobin 9.3, hematocrit is 28, platelets of 139. Chemistry; sodium 132, potassium 4.2, chloride 97, bicarb 20, anion gap of 19, BUN 52, creatinine is 12, glucose is 99, calcium 8.5. C difficile negative. MICROBIOLOGY: Stool cultures were pending, which were sent out and ova and parasite were sent out as well. He will have to follow up with Dr. Waddell, Infectious Disease for further evaluation and management and on the final results. CT abdomen and pelvis showed some wall thickening proximal descending colon involving an adjacent loop of small bowel as well as extensive fat stranding within the mesenteric fat and multiple subcentric mesenteric lymph nodes. We will need to repeat CT scan as an outpatient as well as GI consultation as an outpatient, further management and care and see resolution of these lymph nodes. Mild dilatation of the appendix that is calcified wall. No evidence of inflammation acutely. Nonobstructing right nephrolithiasis. HOSPITAL COURSE: This is a 54-year-old male with known history of HIV, ESRD on dialysis, came into the ED with complaints of abdominal pain, nausea, vomiting, and underlying diarrhea. CT imaging with results above noted. Infectious Disease was consulted. The patient was started on IV antibiotic therapy. Stool cultures were pending and they were send outs. The patient was told to follow up with Dr. Waddell as an outpatient for the stool cultures finding. He is currently afebrile. Normotensive. Abdominal pain is not present. He is not nauseated, not vomiting. He is eating, tolerating diet. Of note, he also is telling me he is ready to go home. He is tolerating regular diet well with no complaints. The patient will be discharged on oral antibiotics for another 10 more days as per ID recommendations. While here, the patient received hemodialysis as per his dialysis schedule. On the day of discharge, vital signs were stable, labs were reviewed and stable. The patient was seen, evaluated, and examined thoroughly on the day of discharge. No other complaints. The patient verbalized understanding and he agreed to plan of care to follow up as an outpatient with the PCP in 1 week and Infectious Disease in 2 weeks' time. MEDICATIONS: See med reconciliation form. DISPOSITION: Home. CONDITION: Stable. DIET: Heart healthy. In the event of any worsening symptoms, the patient was advised to come back to the ED for further evaluation. Discharge summary took greater than 35 minutes. MD ONI Reyes/MODL /[id number]
[2019-06-06 16:06] VITALS: BP 166/94
[2019-06-06] MEDS: ENOXAPARIN 30 MG/0.3 ML SYR SC SCH (16:18)
[2019-06-06] MEDS: CARVEDILOL 12.5 MG TAB PO SCH (16:18)
--- NOTE | 2019-06-06 19:23 | NUR ---
report given to oncoming nurse, pt stable at this time.
--- OUTSIDE RECORDS SUMMARY | 2019-06-09 12:02 | XMS REPORT | Summary of Care ---
Author Author [facility] Organization [facility] Address Unknown Phone Unavailable Care Team Providers Care Assembly Person Name Role Phone Zenaida Waddell MD PCP Reason for Visit * Reason Comments Follow Up Constipation Abdominal Distension Encounter Details Care Team Description Date Type Department Deb Mcgrath MD [address] [place] [address] Follow Up ; Constipation; Abdominal Distension 03/02/2019 Office Visit [facility] Gastroenterology [address], [address] [place] [address] Allergies Comments Active Allergy Reactions Severity Noted Date PRESSURE IN CHEST Morphine Other (See 09/02/2016 Comments) SORES IN MOUTH Penicillins Other (See 09/02/2016 Comments) LOWER IMMUNE SYSTEM Prednisone Other (See 09/02/2016 Comments) Sulfa Antibiotics Itching 09/02/2016 documented as of this encounter (statuses as of 03/16/2019) Medications End Date Status Medication Sig Dispensed Refills Start Date Active finasteride (PROSCAR) 5 TAKE 1 TABLET 30 Tab 0 MG tabletIndications: BY MOUTH 8 Incomplete bladder EVERY DAY emptying Active Calcium Acetate, Phos TAKE 3 1 Binder, 667 MG CAPS CAPSULES WITH 8 EACH MEAL AND 2 WITH EACH SNACK Active carvedilol (COREG) 25 MG TAKE 1 TABLET 2 tablet BY MOUTH 8 TWICE A DAY Active fosamprenavir (LEXIVA) TAKE 1 TABLET 0 700 MG tablet BY MOUTH 8 TWICE A DAY Active acyclovir (ZOVIRAX) 400 TAKE 1 TABLET 1 MG tablet BY MOUTH 8 EVERY DAY Active omeprazole (PRILOSEC) 40 TAKE 1 2 MG capsule CAPSULE BY 8 MOUTH TWICE A DAY Active Ritonavir 100 MG TABS TAKE 1 TABLET 3 BY MOUTH 8 TWICE A DAY Active clonidine (CATAPRESS) 0.3 TAKE ONE 3 MG tablet TABLET BY 8 MOUTH EVERY DAY AT 10 PM, 6 AM AND 2 PM Active doxazosin (CARDURA) 8 MG 0 tablet 8 Active lisinopril (PRINIVIL, TAKE 1 TABLET 1 ZESTRIL) 40 MG tablet BY MOUTH 8 EVERY DAY Active amlodipine (NORVASC) 10 TAKE 1 TABLET 0 MG tablet BY MOUTH 8 EVERY DAY Active Probiotic Product Take 1 0 (PROBIOTIC capsule by OR)Indications: Total mouth 3 times Restore daily. Active lamivudine (EPIVIR) 150 Take 0.5 Tabs 30 Tab 3 MG tabletIndications: HIV by mouth 9 (human immunodeficiency daily. virus infection) [facility] Active TIVICAY 50 MG Take 1 Tab by 30 Tab 0 TABSIndications: HIV mouth two 9 (human immunodeficiency times daily. virus infection) [facility] Active abacavir (ZIAGEN) 300 MG TAKE 1 TABLET 60 Tab 0 tabletIndications: HIV BY MOUTH 9 (human immunodeficiency TWICE A DAY virus infection) [facility]) Active Prucalopride Succinate Take 2 mg by 30 Tab 3 (MOTEGRITY) 2 MG mouth daily. 9 TABSIndications: Constipation, unspecified constipation type 03/02/2019 Discontinued Prucalopride Succinate Take 2 mg by 30 Tab 3 (MOTEGRITY) 2 MG mouth daily. 9 TABSIndications: Constipation, unspecified constipation type documented as of this encounter (statuses as of 03/16/2019) Active Problems No known active problemsdocumented as of this encounter (statuses as of 03/16/2019) Social History Date Tobacco Use Types Packs/Day Years Used Never Smoker Smokeless Tobacco: Never Used Drinks/Week oz/Week Comments Alcohol Use No Sex Assigned at Date Recorded Not on file Industry Job Start Date Occupation Not on file Not on file Not on file Travel End Travel History Travel Start No recent travel history available. documented as of this encounter Last Filed Vital Signs Reading Time Taken Comments Vital Sign 118/82 03/02/2019 1:20 PM CDT Blood Pressure 77 03/02/2019 1:20 PM CDT Pulse 36.9 C (98.5 F) 03/02/2019 1:20 PM CDT Temperature 16 03/02/2019 1:20 PM CDT Respiratory Rate - - Oxygen Saturation - - Inhaled Oxygen Concentration 86.2 kg (190 lb) 03/02/2019 1:20 PM CDT Weight 175.3 cm (5' 9") 03/02/2019 1:20 PM CDT Height 28.06 03/02/2019 1:20 PM CDT Body Mass Index documented in this encounter Progress Notes * Deb Mcgrath MD - 03/02/2019 1:00 PM CDT [facility] Gastroenterology - Return Office Visit CHIEF COMPLAINT: gastroparesis REFERRING PROVIDER: No ref. provider found Interval hx 03/02/19: - EGD performed, no clear structural obstruction - records still unavailable - prucalopride worked but rx didn't go through HPI 12/15/18: David Rios is a 54 y.o. male who presents in consultation for [facility] evaluation of gastroparesis. History is as follows: - presented with bloating/gas over a year ago - saw Dr. Jordon Dobbs at [facility] - did endoscopy over a year ago and GES 4h a few m os ago; dx with gastroparesis - educated about a gastroparesis diet - on dialysis 6y for ESRD - HTN MWF - no medications tried - getting evaluated for renal transplant - also HIV+ dx 2003; last VL 36, CD4 532 on ART - waiting for ID clearance to mo ve forward with transplant - reports constipation; BM's q3days; not on meds - denies n/v; has pain only sometimes; really has issues with feeling full/early satiety - UTD on colonoscopy - denies recent blood in stool - has known hemorrhoids and has some BRB with wip ing in the past ROS: Constitutional Symptoms: no fever, no weight loss, + fatigue Eyes: no dry eyes Ears, Nose, Mouth, Throat: no rhinorrhea Cardiovascular: no chest pain, + SOB Respiratory: no cough Gastrointestinal: as per HPI Genitourinary: no dysuria Musculoskeletal: no arthralgia, no myalgia Integumentary: no rashes Neurological: no headache Psychiatric: no anxiety, no depression Endocrine: no cold or heat intolerance Hematologic/Lymphatic: no bleeding, no bruising Past Medical History: Past Medical History: Diagnosis Date Acid reflux Depression Environmental allergies History of stomach ulcers HIV (human immunodeficiency virus infection) (HCCode) HTN (hypertension) Kidney disease Dialysis treatments Past Surgical History: Past Surgical History: Procedure Laterality Date HX AV FISTULA REPAIR HX GALLBLADDER REMOVAL FH: Family History Problem Relation Name Age of Onset High Cholesterol Mother High Blood Pressure Mother High Cholesterol Father High Blood Pressure Father Unremarkable Brother Social History: Social History Tobacco Use Smoking status: Never Smoker Smokeless tobacco: Never Used Substance Use Topics Alcohol use: No Drug use: Not on file ALLERGIES: Morphine; Penicillins; Prednisone; and Sulfa antibiotics MEDICATIONS: Current Outpatient Medications on File Prior to Visit Medication Sig Dispense Refill abacavir (ZIAGEN) 300 MG tablet TAKE 1 TABLET BY MOUTH TWICE A DAY 60 Tab 0 acyclovir (ZOVIRAX) 400 MG tablet TAKE 1 TABLET BY MOUTH EVERY DAY 1 amlodipine (NORVASC) 10 MG tablet TAKE 1 TABLET BY MOUTH EVERY DAY 0 Calcium Acetate, Phos Binder, 667 MG CAPS TAKE 3 CAPSULES WITH EACH MEAL AND 2 WITH EACH SNACK 1 carvedilol (COREG) 25 MG tablet TAKE 1 TABLET BY MOUTH TWICE A DAY 2 clonidine (CATAPRESS) 0.3 MG tablet TAKE ONE TABLET BY MOUTH EVERY DAY AT 10 PM, 6 AM AND 2 PM 3 doxazosin (CARDURA) 8 MG tablet finasteride (PROSCAR) 5 MG tablet TAKE 1 TABLET BY MOUTH EVERY DAY 30 Tab 0 fosamprenavir (LEXIVA) 700 MG tablet TAKE 1 TABLET BY MOUTH TWICE A DAY 0 lamivudine (EPIVIR) 150 MG tablet Take 0.5 Tabs by mouth daily. 30 Tab 3 lisinopril (PRINIVIL, ZESTRIL) 40 MG tablet TAKE 1 TABLET BY MOUTH EVERY DAY 1 omeprazole (PRILOSEC) 40 MG capsule TAKE 1 CAPSULE BY MOUTH TWICE A DAY 2 Probiotic Product (PROBIOTIC OR) Take 1 capsule by mouth 3 times daily. Ritonavir 100 MG TABS TAKE 1 TABLET BY MOUTH TWICE A DAY 3 TIVICAY 50 MG TABS Take 1 Tab by mouth two times daily. 30 Tab 0 No current facility-administered medications on file prior to visit. PHYSICAL EXAM: VITALS: Vitals: 03/02/19 1320 BP: 118/82 Pulse: 77 Resp: 16 Temp: 98.5 F (36.9 C) TempSrc: Oral Weight: 190 lb (86.2 kg) Height: 5' 9" (1.753 m) Body mass index is 28.06 kg/m. General: no acute distress Eyes: no icterus Ears,Nose, Mouth, Throat: MMM, OP clear Cardiovascular: RRR, no murmurs appreciated Resp: CTAB GI: soft, mild epigastric tenderness, non-distended, with normoactive bowel soun ds, no HSM appreciated Skin: no jaundice Neuro: alert, fluent, and appropriate Psyc: normal affect LABS: Reviewed Lab Results Component Value Date/Time WBC 6.4 11/22/2018 05:04 PM MCV 94.3 11/22/2018 05:04 PM HGB/HCT TREND: Lab Results Component Value Date/Time HGB 13.6 11/22/2018 05:04 PM HCT 39.8 11/22/2018 05:04 PM Lab Results Component Value Date/Time NA 137 11/22/2018 05:04 PM K 6.0 (H) 11/22/2018 05:04 PM CL 90 (L) 11/22/2018 05:04 PM CO2 26 11/22/2018 05:04 PM BUN 64 (H) 11/22/2018 05:04 PM LFTs TREND: Lab Results Component Value Date/Time AST 23 11/22/2018 05:04 PM ALT 31 11/22/2018 05:04 PM Other studies: Requested ASSESSMENT AND PLAN: ICD-10-CM 1. Gastroparesis K31.84 2. Constipation, unspecified constipation type K59.00 3. HIV (human immunodeficiency virus infection) (HCCode) B20 This is a 53 yo male with h/o HIV, newly diagnosed DM gastroparesis, and constip ation. We requested and have now received his gastric emptying scan records, not able for 16% retained contents at 4h. All his symptoms improved dramatically on prucalopride, which helps with both constipation and gastric emptying. I have re -prescribed this and encouraged a diet of small frequent meals low in fat and fi zachary. Should this be insufficient, we can consider relamorelin or pyloric interve ntions. All of the above recommendations were discussed with the patient, who expressed understanding and was in agreement with the plan. Deb Mcgrath MD Operative Supervisoractuarial director Section of Gastroenterology [facility] documented in this encounter Plan of Treatment Health Maintenance Due Date Last Done Comments COLON CANCER SCREENIN1967 COLONOSCOPY MEDICARE AWV 1967 TETANUS SHOT (ADULT) 1982 BMI FOLLOW UP PLAN 1985 FLU VACCINE > 6 MONTHS 01/19/2019 HIV SCREENING Completed 02/24/2019, 12/15/2018, 11/22/2018, Additional history exists documented as of this encounter Results Not on filedocumented in this encounter Visit Diagnoses Diagnosis Gastroparesis - Primary Constipation, unspecified constipation type HIV (human immunodeficiency virus infection) (HCCode) Asymptomatic human immunodeficiency virus (HIV) infection status documented in this encounter Insurance Type Payer Benefit Subscriber ID Effective Phone Address Plan / Dates Group Medicare MEDICARE MEDICARE xxxxxxxxxx 2013-P [id number] [place] [address] [facility] CHOICE/CHO xxxxxxxxx 2016-P [address] [id number] PLUS/[facility] PPO - [facility] [id number] documented as of this encounter
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
== END 2019-06-06 20:11 | disposition home or self-care (01) | DRG 391 ==
LOC: FSED 10:02 → ERHOLD 13:56 → MED/SURG2 15:00
PROVIDERS: ADMIT Internal Medicine Infectious Disease; ATTEND Internal Medicine Infectious Disease
PROC: 5A1D70Z Performance of Urinary Filtration, Intermittent, Less than 6 Hours Per Day (ICD-10-PCS; principal; 2019-06-05)
DX: K52.9 Noninfective gastroenteritis and colitis, unspecified (principal); N18.6 End stage renal disease; I12.0 Hypertensive chronic kidney disease with stage 5 chronic kidney disease or end stage renal disease; Z99.2 Dependence on renal dialysis; Z21 Asymptomatic human immunodeficiency virus [HIV] infection status; Z76.82 Awaiting organ transplant status; I25.10 Atherosclerotic heart disease of native coronary artery without angina pectoris; Z95.1 Presence of aortocoronary bypass graft; Z82.49 Family history of ischemic heart disease and other diseases of the circulatory system; Z83.3 Family history of diabetes mellitus; Z79.82 Long term (current) use of aspirin; Z88.5 Allergy status to narcotic agent; Z88.0 Allergy status to penicillin; Z88.2 Allergy status to sulfonamides; Z88.8 Allergy status to other drugs, medicaments and biological substances
CPT/HCPCS: 36415; 74176; 80048; 80076; 83630; 83993; 85025; 86705; 86706; 87045; 87177; 87340; 87493; 90962; 96367; 99284; J1650; J1956; J7030; J7050; Q0162

== ENCOUNTER → 2019-08-01 | Day surgery (SDC) | payer MEDICARE, OTHER ==
[2019-07-18 14:17] LABS: BASOPHILS % 0.6 % (0.0-1.0); EOSINOPHILS # (AUTO) 0.1 (0.0-0.4); EOSINOPHILS % 1.7 % (0.0-6.0); HEMATOCRIT 42.2 % (38.2-49.6); HEMOGLOBIN 13.1 g/dL (14.0-18.0); LYMPHOCYTES # (AUTO) 2.5 (1.0-3.2); LYMPHOCYTES % 47.4 % (18.0-39.1); MEAN CORPUSCULAR HEMOGLOBIN 28.4 pg (28-32); MEAN CORPUSCULAR VOLUME 91.3 fL (81-99); MONOCYTES # (AUTO) 0.3 (0.2-0.8); MONOCYTES % 5.3 % (4.4-11.3); NEUTROPHILS # (AUTO) 2.4 (2.1-6.9); NEUTROPHILS % 44.8 % (38.7-80.0); PLATELET COUNT 166 x10e3/uL (140-360); RED BLOOD COUNT 4.62 x10e6/uL (4.3-5.7); RED CELL DISTRIBUTION WIDTH 15.9 % (11.7-14.4)
[2019-07-18 14:28] LABS: INR 1.17; PROTHROMBIN TIME 15.5 seconds (11.9-14.5)
[2019-07-18 14:29] LABS: PARTIAL THROMBOPLASTIN TIME 35.4 seconds (23.8-35.5)
[2019-07-18 14:37] LABS: ANION GAP 19.4 mmol/L (8-16); CALCIUM 10.9 mg/dL (8.4-10.2); CREATININE, SERUM 12.01 mg/dL (0.72-1.25)
[2019-07-18 14:41] LABS: POTASSIUM 5.4 mmol/L (3.5-5.1)
[~2019-08-01] MED LIST changes: +ALPRAZOLAM0.25 M1 PO; +ASPIRIN81 MG; +CLONIDINE HCL0.3 MG PO; +DOCUSATE SODIU100 MG PO; +DOXAZOSIN MESYLA2 MG PO; +FENTANYL CITRATE/PF 100MCG/2 ML INJ ONE; +FLUOXETINE HCL20 MG PO; +GLUCAGON FOR INJ 1 MG VIAL ONE; +HYOSCYAMINE 0.125 MG TAB ONE; +ISOSORBIDE MONO60 MG; +MIDAZOLAM HCL 2 MG/2 ML VIAL ONE; +NEPHRO-VITE TABL1 EA PO; +OMEPRAZOLE40 MG; +PROPOFOL IV EMULSION 10 MG/ML 50 ML VIAL ONE; +SODIUM CHLORIDE 0.9% 250ML 0 ML ONE; +SODIUM CHLORIDE 0.9% 500ML 500 ML ONE
[2019-08-01 10:26] LABS: ANION GAP 19.7 mmol/L (8-16); CALCIUM 9.7 mg/dL (8.4-10.2); CREATININE, SERUM 11.51 mg/dL (0.72-1.25); POTASSIUM 4.7 mmol/L (3.5-5.1)
[2019-08-01 12:30] VITALS: BP 151/85
[2019-08-01 14:19] LABS: C DIFFICILE TOXIN A&B AMP PROB NEGATIVE (NEGATIVE)
[2019-08-01 15:08] LABS: WBC,FECAL (FECAL LACTOFERRIN) NEGATIVE (NEGATIVE)
--- NOTE | 2019-09-13 11:54 | Operative Report ---
DATE OF PROCEDURE: 08/01/2019 SURGEON: Etienne Oglesby MD PROCEDURES: EGD with biopsies and a colonoscopy with biopsies. INDICATION FOR EGD: Acid reflux. INDICATIONS FOR COLONOSCOPY: Colorectal cancer screening, intermittent loose stools. MEDICATIONS: The patient was done under MAC, please see anesthesiologist's note. PROCEDURE IN DETAIL: With the patient in left lateral decubitus position, a flexible fiberoptic Olympus gastroscope was introduced into the esophagus under direct visualization without any difficulty. There was some patchy erythema noted in distal esophagus. There was also some prominence of epithelial veins versus grade 1 esophageal varices noted. The scope was then advanced with ease into the stomach. Mucosa overlying the antrum and the body revealed some patchy erythema and [id number] edema, and biopsies were obtained, sent to stain for H. pylori. A minute polyp in the body of the stomach was partially excised with the cold biopsy forceps. The pylorus was of normal contour and shape, was intubated with ease and the scope was advanced all the way to the second portion of the duodenum. Biopsies were obtained from the proximal second portion and duodenal bulb to rule out sprue. The scope was then withdrawn back into the stomach and retroflexed, mucosa overlying the fundus and cardia appeared to be within normal limits. The scope was then straightened out, it was subsequently withdrawn. The patient tolerated the procedure well. IMPRESSION: 1. Mild distal esophagitis. 2. Prominent epithelial veins versus grade 1 esophageal varices. 3. Gastritis, biopsied, biopsies sent to stain for H. pylori. 4. Gastric polyp, body, partially excised with the cold biopsy forceps. 5. Rule out sprue. PLAN: 1. Follow up histology. 2. Initiate Protonix 40 mg one p.o. q.a.m. a.c. DESCRIPTION OF PROCEDURE: The patient was then turned around and after adequate lubrication of the anal canal, a flexible fiberoptic Olympus colonoscope was inserted into the rectum with ease and advanced all the way to the cecum. It was then withdrawn slowly. Mucosa overlying the cecum, ascending colon, transverse, and appeared to be within normal limits. The prep overall was suboptimal with retained stools in the colon. The mucosa overlying the left colon and rectum revealed some patchy mild inflammatory changes and multiple random biopsies were obtained. Some diverticular disease was noted to involve the sigmoid colon. The scope was then retroflexed into the distal rectum and small internal hemorrhoids were noted, none of which was actively bleeding. The scope was then straightened out, it was subsequently withdrawn after securing an adequate stool specimen, that was sent for the appropriate stool studies. The patient tolerated the procedure well. IMPRESSION: 1. Suboptimal prep. 2. Diverticulosis. 3. Mild patchy left-sided colitis. 4. Proctitis, mild. 5. Internal hemorrhoids, none actively bleeding. PLAN: 1. Follow up histology. 2. Follow up stool studies. 3. Initiate Bentyl 10 mg one p.o. t.i.d. 4. VSL #3 one p.o. daily. 5. The patient might benefit from a followup colonoscopy in 5 to 10 years. Etienne Oglesby MD [facility] [place] /[id number]
== END | disposition home or self-care (01) ==
LOC: OR 09:24
PROVIDERS: ATTEND Internal Medicine Gastroenterology
DX: K51.50 Left sided colitis without complications (principal); K31.7 Polyp of stomach and duodenum; K29.70 Gastritis, unspecified, without bleeding; K31.84 Gastroparesis; K20.9 Esophagitis, unspecified; K57.30 Diverticulosis of large intestine without perforation or abscess without bleeding; K59.00 Constipation, unspecified; K21.9 Gastro-esophageal reflux disease without esophagitis; K64.8 Other hemorrhoids; K62.89 Other specified diseases of anus and rectum; I25.810 Atherosclerosis of coronary artery bypass graft(s) without angina pectoris; Z21 Asymptomatic human immunodeficiency virus [HIV] infection status; I12.0 Hypertensive chronic kidney disease with stage 5 chronic kidney disease or end stage renal disease; N18.6 End stage renal disease; F41.9 Anxiety disorder, unspecified; F32.9 Major depressive disorder, single episode, unspecified; Z88.6 Allergy status to analgesic agent; Z88.0 Allergy status to penicillin; Z88.2 Allergy status to sulfonamides; Z88.8 Allergy status to other drugs, medicaments and biological substances; Z01.810 Encounter for preprocedural cardiovascular examination; Z01.812 Encounter for preprocedural laboratory examination; Z79.82 Long term (current) use of aspirin; Z99.2 Dependence on renal dialysis; Z95.1 Presence of aortocoronary bypass graft
CPT/HCPCS: 36415; 43239; 45378; 80048; 83630; 83993; 85025; 85610; 85730; 87045; 87177; 87206; 87328; 87493; 88305; 88312; 93005; J1610; J2250; J3010; J7040; J7050

== ENCOUNTER 2019-09-04 11:44 | Emergency (ER) | payer OTHER, MEDICARE ==
[~2019-09-04] VITALS: Ht 167.6 cm; Wt 78.5 kg
[~2019-09-04 11:44] MED LIST changes: -FENTANYL CITRATE/PF 100MCG/2 ML INJ ONE; -GLUCAGON FOR INJ 1 MG VIAL ONE; -HYOSCYAMINE 0.125 MG TAB ONE; -MIDAZOLAM HCL 2 MG/2 ML VIAL ONE; -PROPOFOL IV EMULSION 10 MG/ML 50 ML VIAL ONE; -SODIUM CHLORIDE 0.9% 250ML 0 ML ONE; -SODIUM CHLORIDE 0.9% 500ML 500 ML ONE
[2019-09-04] MEDS ORDERED: LIDOCAINE HCL 1% LOCAL INJ 20 ML VIAL ONE (12:03)
[2019-09-04] MEDS ORDERED: TETANUS/DIPHTHERIA TOX ADULT 0.5 ML SYR IM ONE (12:15)
[2019-09-04] MEDS ORDERED: SODIUM CHLORIDE 0.9% 1000ML 1,000 ML ONE (12:38)
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
--- NOTE | 2019-09-04 13:04 | NUR ---
lac repair performed by CADY Del Rio
[2019-09-04 13:05] LABS: BASOPHILS % 0.2 % (0.0-1.0); EOSINOPHILS # (AUTO) 0.1 (0.0-0.4); EOSINOPHILS % 0.7 % (0.0-6.0); HEMATOCRIT 24.9 % (38.2-49.6); HEMOGLOBIN 8.1 g/dL (14.0-18.0); LYMPHOCYTES # (AUTO) 1.6 (1.0-3.2); LYMPHOCYTES % 19.2 % (18.0-39.1); MEAN CORPUSCULAR HGB CONC 32.5 g/dL (31-35); MEAN CORPUSCULAR VOLUME 92.2 fL (81-99); MONOCYTES # (AUTO) 0.2 (0.2-0.8); MONOCYTES % 2.8 % (4.4-11.3); NEUTROPHILS # (AUTO) 6.2 (2.1-6.9); NEUTROPHILS % 76.7 % (38.7-80.0); PLATELET COUNT 149 x10e3/uL (140-360); RED CELL DISTRIBUTION WIDTH 15.8 % (11.7-14.4)
[2019-09-04 13:20] LABS: INR 1.23; PARTIAL THROMBOPLASTIN TIME 33.6 seconds (23.8-35.5); PROTHROMBIN TIME 16.3 seconds (11.9-14.5)
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
[2019-09-04] MEDS ORDERED: MORPHINE SULFATE INJ 4 MG/ML INJ 1ML IV ONE (14:00)
[2019-09-04 14:09] LABS: ALBUMIN 3.4 g/dL (3.5-5.0); ALBUMIN/GLOBULIN RATIO 0.8 (0.8-2.0); ANION GAP 13.1 mmol/L (8-16); CALCIUM 10.1 mg/dL (8.4-10.2); CREATININE, SERUM 7.36 mg/dL (0.72-1.25); POTASSIUM 4.1 mmol/L (3.5-5.1)
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
== END 2019-09-04 15:49 | disposition home or self-care (01) ==
LOC: ER 11:44
DX: S01.521A Laceration with foreign body of lip, initial encounter (principal); S02.5XXA Fracture of tooth (traumatic), initial encounter for closed fracture; Y04.0XXA Assault by unarmed brawl or fight, initial encounter; Y92.008 Other place in unspecified non-institutional (private) residence as the place of occurrence of the external cause; I12.0 Hypertensive chronic kidney disease with stage 5 chronic kidney disease or end stage renal disease; E11.22 Type 2 diabetes mellitus with diabetic chronic kidney disease; N18.6 End stage renal disease; Z99.2 Dependence on renal dialysis; B20 Human immunodeficiency virus [HIV] disease; Z95.1 Presence of aortocoronary bypass graft
CPT/HCPCS: 12052; 36415; 70450; 71045; 72125; 73130; 80053; 85025; 85610; 85730; 86850; 86870; 86880; 86900; 86905; 90471; 90714; 93005; 99001; 99284; J2001; J7030

== ENCOUNTER 2020-07-26 15:05 | Emergency (ER) | payer MEDICARE, OTHER ==
[~2020-07-26] VITALS: Ht 175.3 cm; Wt 79.4 kg
[2020-07-26] MEDS ORDERED: LORAZEPAM INJ 2 MG/ML VIAL IV ONE (15:30)
[2020-07-26] MEDS ORDERED: ASPIRIN 81 MG CHEW TAB PO ONE (15:30)
[2020-07-26 15:43] LABS: BASOPHILS % 0.4 % (0.0-1.0); EOSINOPHILS # (AUTO) 0.1 (0.0-0.4); EOSINOPHILS % 1.4 % (0.0-6.0); HEMATOCRIT 31.8 % (38.2-49.6); HEMOGLOBIN 10.4 g/dL (14.0-18.0); LYMPHOCYTES # (AUTO) 1.7 (1.0-3.2); LYMPHOCYTES % 33.8 % (18.0-39.1); MEAN CORPUSCULAR HEMOGLOBIN 32.5 pg (28-32); MEAN CORPUSCULAR HGB CONC 32.7 g/dL (31-35); MEAN CORPUSCULAR VOLUME 99.4 fL (81-99); MONOCYTES # (AUTO) 0.3 (0.2-0.8); MONOCYTES % 6.1 % (4.4-11.3); NEUTROPHILS # (AUTO) 2.9 (2.1-6.9); NEUTROPHILS % 58.1 % (38.7-80.0); PLATELET COUNT 158 x10e3/uL (140-360); RED CELL DISTRIBUTION WIDTH 15.9 % (11.7-14.4)
[2020-07-26 16:01] LABS: ALBUMIN 3.8 g/dL (3.5-5.0); ALBUMIN/GLOBULIN RATIO 0.8 (0.8-2.0); ANION GAP 17.8 mmol/L (8-16); CALCIUM 9.2 mg/dL (8.4-10.2); CREATININE, SERUM 7.07 mg/dL (0.72-1.25); POTASSIUM 4.8 mmol/L (3.5-5.1)
[2020-07-26 16:10] LABS: CREATINE KINASE MB 1.6 ng/mL (0-5.0)
[2020-07-26 16:56] VITALS: BP 160/90
== END 2020-07-26 16:58 | disposition home or self-care (01) ==
LOC: ER 15:17
DX: R20.2 Paresthesia of skin (principal); I12.0 Hypertensive chronic kidney disease with stage 5 chronic kidney disease or end stage renal disease; N18.6 End stage renal disease; N18.9 Chronic kidney disease, unspecified; Z99.2 Dependence on renal dialysis; B20 Human immunodeficiency virus [HIV] disease; Z95.1 Presence of aortocoronary bypass graft
CPT/HCPCS: 36415; 80053; 82550; 82553; 84484; 85025; 99283; J2060

== ENCOUNTER → 2020-10-10 | Day surgery (SDC) | payer MEDICARE, OTHER ==
[~2020-10-10] MED LIST changes: +LABETALOL HCL100 MG PO; +LIDOCAINE HCL 2% LOCAL INJ 5 ML SDV VIAL INJ ONE; +MIDAZOLAM HCL 2 MG/2 ML VIAL ONE; +PANTOPRAZOLE SO20 MG PO; +PROPOFOL IV EMULSION 10 MG/ML 20 ML VIAL ONE; +SODIUM CHLORIDE 0.9% 500ML 500 ML ONE; +TIVICAY10 MG PO
[2020-10-10 13:40] LABS: BASOPHILS % 0.4 % (0.0-1.0); EOSINOPHILS # (AUTO) 0.1 (0.0-0.4); EOSINOPHILS % 1.7 % (0.0-6.0); HEMATOCRIT 31.1 % (38.2-49.6); HEMOGLOBIN 10.3 g/dL (14.0-18.0); LYMPHOCYTES # (AUTO) 2.3 (1.0-3.2); LYMPHOCYTES % 42.8 % (18.0-39.1); MEAN CORPUSCULAR HEMOGLOBIN 31.4 pg (28-32); MEAN CORPUSCULAR HGB CONC 33.1 g/dL (31-35); MEAN CORPUSCULAR VOLUME 94.8 fL (81-99); MONOCYTES # (AUTO) 0.3 (0.2-0.8); MONOCYTES % 5.9 % (4.4-11.3); NEUTROPHILS # (AUTO) 2.6 (2.1-6.9); PLATELET COUNT 219 x10e3/uL (140-360); RED BLOOD COUNT 3.28 x10e6/uL (4.3-5.7); RED CELL DISTRIBUTION WIDTH 15.1 % (11.7-14.4)
[2020-10-10 14:00] LABS: INR 1.16; PROTHROMBIN TIME 15.5 seconds (11.9-14.5)
[2020-10-10 14:05] LABS: ANION GAP 24.1 mmol/L (8-16); CREATININE, SERUM 10.95 mg/dL (0.72-1.25); POTASSIUM 4.1 mmol/L (3.5-5.1)
[2020-10-10 17:50] VITALS: BP 102/67
[2020-10-10 18:06] LABS: WBC,FECAL (FECAL LACTOFERRIN) NEGATIVE (NEGATIVE)
[2020-10-11 14:49] LABS: C DIFFICILE TOXIN A&B AMP PROB NEGATIVE (NEGATIVE)
== END | disposition home or self-care (01) ==
LOC: OR 13:08
PROVIDERS: ATTEND Internal Medicine Gastroenterology
DX: K59.1 Functional diarrhea (principal); K59.00 Constipation, unspecified; K57.30 Diverticulosis of large intestine without perforation or abscess without bleeding; K64.8 Other hemorrhoids; K29.70 Gastritis, unspecified, without bleeding; K21.9 Gastro-esophageal reflux disease without esophagitis; D64.9 Anemia, unspecified; I25.810 Atherosclerosis of coronary artery bypass graft(s) without angina pectoris; I12.0 Hypertensive chronic kidney disease with stage 5 chronic kidney disease or end stage renal disease; N18.6 End stage renal disease; Z99.2 Dependence on renal dialysis; Z88.6 Allergy status to analgesic agent; Z88.0 Allergy status to penicillin; Z88.2 Allergy status to sulfonamides; Z88.8 Allergy status to other drugs, medicaments and biological substances; Z01.810 Encounter for preprocedural cardiovascular examination; Z01.812 Encounter for preprocedural laboratory examination; Z20.822 Contact with and (suspected) exposure to COVID-19; Z95.1 Presence of aortocoronary bypass graft
CPT/HCPCS: 36415; 45380; 80048; 83630; 83993; 85025; 85610; 85730; 87015; 87045; 87177; 87206 ×2; 87207; 87328; 87493; 93005; J2001; J2250; J2704; J7040; U0002; 45378